=== PATIENT | male | born 1960 | race African-American/Black ===

== ENCOUNTER 2017-01-09 03:24 | Inpatient (IN) | payer MEDICAID ==
[~2017-01-09] VITALS: Ht 177.8 cm; Wt 71.7 kg
[~2017-01-09 03:24] MED LIST: ASPIRIN; ATORVASTATIN; FLUCONAZOLE; GABAPENTIN; HUMULIN; LISINOPRIL; METFORMIN; RISPERDONE; TRIUMEQ
[2017-01-09] MEDS ORDERED: ONDANSETRON HCL 4MG/2ML VIAL IV STA (04:03)
[2017-01-09] MEDS ORDERED: SODIUM CHLORIDE 0.9% 1000ML BAG (SEPSIS BOLUS) IV ONE (04:15)
[2017-01-09 04:53] LABS: BASOPHILS % 0.5 % (0.0-2.0); EOSINOPHILS % 2.8 % (0.0-5.0); HEMATOCRIT. 43.6 % (42.0-52.0); HEMOGLOBIN. 15.5 g/dL (14.0-18.0); LYMPHOCYTES % 25.6 % (20.0-50.0); MEAN CORPUSCULAR HEMOGLOBIN 34.2 pg (28.0-32.0); MEAN CORPUSCULAR VOLUME 96.3 fL (80.0-94.0); MEAN PLATELET VOLUME 8.3 fl (7.4-10.4); MONOCYTES % 13.5 % (2.0-8.0); NEUTROPHILS % 57.6 % (40.0-76.0); PLATELET 192 x1000/uL (130-400); RED BLOOD CELL COUNT 4.53 mill/uL (4.7-6.1); RED CELL DISTRIBUTION WIDTH 12.7 % (11.6-14.6)
[2017-01-09 05:00] LABS: INR 0.9; PROTHROMBIN TIME 9.9 sec (9.4-11.6)
[2017-01-09 05:12] LABS: CARBON DIOXIDE 27 mEq/L (21-32); CHLORIDE 97 mEq/L (98-107); ETHANOL BLOOD < 10 mg/dL; TROPONIN I < 0.02 ng/mL (0.00-0.04)
[2017-01-09 07:47] LABS: GLUCOSE URINE 3+ (NEGATIVE); KETONES URINE TRACE (NEGATIVE); LEUKOCYTE ESTERASE URINE NEGATIVE (NEGATIVE); NITRITE URINE NEGATIVE (NEGATIVE); OCCULT BLOOD URINE 2+ (NEGATIVE); PROTEIN URINE 1+ (NEGATIVE); SPECIFIC GRAVITY URINE 1.027 (1.005-1.030); UROBILINOGEN URINE 0.2 E.U./dL (0.2-1.0)
[2017-01-09 07:49] LABS: CLARITY URINE SL HAZY (CLEAR); COLOR URINE YELLOW (YELLOW)
[2017-01-09 08:06] LABS: *AMPHETAMINES SCREEN URINE NEGATIVE (NEGATIVE); *BARBITURATES SCREEN URINE NEGATIVE (NEGATIVE); *BENZODIAZEPINES SCREEN URINE NEGATIVE (NEGATIVE); *COCAINE SCREEN URINE PRESUMTIVE POSITIVE (NEGATIVE); CANNABINOID URINE SCREEN NEGATIVE (NEGATIVE); METHADONE URINE SCREEN NEGATIVE (NEGATIVE); OPIATES URINE SCREEN NEGATIVE (NEGATIVE); PHENCYCLIDINE URINE SCREEN NEGATIVE (NEGATIVE)
[2017-01-09 12:30] VITALS: BP 105/60
[2017-01-09 13:00] VITALS: BP 105/60
[2017-01-09] MEDS ORDERED: GENVOYA (15:35)
[2017-01-09] MEDS ORDERED: PNEUMOCOCCAL 23-VAL P-SAC VAC 0.5 ML IM ONE (15:45)
[2017-01-09 16:00] VITALS: BP 101/61
[2017-01-09] MEDS ORDERED: DEXTROSE 50% WATER 50ML SYRINGE IV PRN ×2 (17:30→17:45)
[2017-01-09] MEDS ORDERED: BLOOD SUGAR DIAGNOSTIC STRIP TEST SCH (17:40)
[2017-01-09] MEDS ORDERED: MAGNESIUM/ALUMINUM HYDROXIDE/SIMETHICONE 30ML UDC PO PRN (17:45)
[2017-01-09] MEDS ORDERED: ONDANSETRON HCL 4MG/2ML VIAL IV PRN (17:45)
[2017-01-09] MEDS ORDERED: IPRATROPIUM/ALBUTEROL 0.5-3(2.5)MG/3ML NEB INH PRN (17:45)
[2017-01-09] MEDS ORDERED: DIPHENHYDRAMINE 50MG/ML VIAL IV PRN (17:45)
[2017-01-09] MEDS ORDERED: CLONIDINE 0.1MG TABLET PO PRN (17:45)
[2017-01-09] MEDS: INSULIN LISPRO 100 UNITS/ML SUBCUT SCH ×2 (17:56→21:41)
[2017-01-09] MEDS ORDERED: INSULIN LISPRO 100 UNITS/ML SUBCUT SCH (18:10)
[2017-01-09] MEDS: SODIUM CHLORIDE 0.9% 1,000 ML IV SCH (18:57)
[2017-01-09 20:00] VITALS: BP 110/61
[2017-01-09 20:30] LABS: TROPONIN I < 0.02 ng/mL (0.00-0.04)
[2017-01-09 20:41] LABS: CREATINE KINASE 2108 IU/L (39-308)
[2017-01-09] MEDS: BLOOD SUGAR DIAGNOSTIC STRIP TEST SCH (21:42)
[2017-01-09] MEDS: SODIUM CHLORIDE 0.9% INJ 3ML FLUSH IVF SCH (21:42)
[2017-01-10] VITALS: BP 105/62
[2017-01-10 04:00] VITALS: BP 95/65
[2017-01-10] MEDS: SODIUM CHLORIDE 0.9% 1,000 ML IV SCH ×2 (04:05→07:20)
[2017-01-10] MEDS ORDERED: VANCOMYCIN 1250MG in DEXTROSE 5% WATER 250ML IV SCH (05:00)
[2017-01-10] MEDS: SODIUM CHLORIDE 0.9% INJ 3ML FLUSH IVF SCH ×3 (05:42→21:21)
[2017-01-10 06:51] LABS: CARBON DIOXIDE 26 mEq/L (21-32); CHLORIDE 98 mEq/L (98-107)
[2017-01-10 07:04] LABS: CREATINE KINASE 1857 IU/L (39-308); TROPONIN I < 0.02 ng/mL (0.00-0.04)
[2017-01-10] MEDS: BLOOD SUGAR DIAGNOSTIC STRIP TEST SCH ×3 (07:40→21:11)
[2017-01-10 08:00] VITALS: BP 107/68
[2017-01-10] MEDS: INSULIN LISPRO 100 UNITS/ML SUBCUT SCH ×3 (09:05→18:56)
[2017-01-10 12:00] VITALS: BP 110/77
[2017-01-10] MEDS ORDERED: DEXTROSE 50% WATER 50ML SYRINGE IV PRN ×2 (14:30→18:45)
[2017-01-10] MEDS: VANCOMYCIN 1250MG in DEXTROSE 5% WATER 250ML IV SCH ×2 (14:54→21:21)
[2017-01-10] MEDS ORDERED: INS NPH/REG HM 70-30 100 UNITS/ML 10ML VIAL (HUMULIN 70-30) SUBCUT SCH (15:00)
[2017-01-10] MEDS: DULOXETINE HCL 60MG DR CAPSULE PO SCH (15:07)
[2017-01-10] MEDS: GABAPENTIN 300MG CAPSULE PO SCH ×2 (15:07→21:07)
[2017-01-10 16:00] VITALS: BP 101/66
[2017-01-10] MEDS ORDERED: BLOOD SUGAR DIAGNOSTIC STRIP TEST SCH (17:40)
[2017-01-10] MEDS: METFORMIN HCL 500MG TABLET PO SCH (18:51)
[2017-01-10 20:00] VITALS: BP 114/82
[2017-01-10] MEDS ORDERED: INSULIN NPH (HUMULIN-N) 100 UNITS/ML 3ML VIAL SUBCUT SCH (21:00)
[2017-01-10] MEDS: INSULIN NPH (HUMULIN-N) 100 UNITS/ML 3ML VIAL SUBCUT SCH (21:21)
[2017-01-11] VITALS: BP 102/69
[2017-01-11 04:00] VITALS: BP 94/51
[2017-01-11] MEDS: SODIUM CHLORIDE 0.9% INJ 3ML FLUSH IVF SCH ×3 (06:18→22:27)
[2017-01-11] MEDS: VANCOMYCIN 1250MG in DEXTROSE 5% WATER 250ML IV SCH ×3 (06:18→22:27)
[2017-01-11] MEDS: GABAPENTIN 300MG CAPSULE PO SCH ×3 (06:18→22:27)
[2017-01-11] MEDS: BLOOD SUGAR DIAGNOSTIC STRIP TEST SCH ×4 (07:42→22:30)
[2017-01-11] MEDS: INSULIN LISPRO 100 UNITS/ML SUBCUT SCH ×4 (07:43→22:28)
[2017-01-11 08:00] VITALS: BP 107/71
[2017-01-11] MEDS: METFORMIN HCL 500MG TABLET PO SCH ×2 (08:08→18:13)
[2017-01-11] MEDS: DULOXETINE HCL 60MG DR CAPSULE PO SCH (08:08)
[2017-01-11] MEDS: INSULIN NPH (HUMULIN-N) 100 UNITS/ML 3ML VIAL SUBCUT SCH ×2 (08:10→22:29)
[2017-01-11] MEDS: ASPIRIN 81MG EC TABLET PO SCH (08:12)
[2017-01-11 12:00] VITALS: BP 97/63
[2017-01-11 20:00] VITALS: BP 108/67
[2017-01-12] VITALS: BP 107/66
[2017-01-12 04:00] VITALS: BP 109/66
[2017-01-12] MEDS: GABAPENTIN 300MG CAPSULE PO SCH (06:09)
[2017-01-12] MEDS: SODIUM CHLORIDE 0.9% INJ 3ML FLUSH IVF SCH (06:10)
[2017-01-12] MEDS: VANCOMYCIN 1250MG in DEXTROSE 5% WATER 250ML IV SCH (06:10)
[2017-01-12] MEDS: BLOOD SUGAR DIAGNOSTIC STRIP TEST SCH ×2 (07:42→12:03)
[2017-01-12 08:00] VITALS: BP 96/65
[2017-01-12] MEDS: ASPIRIN 81MG EC TABLET PO SCH (08:31)
[2017-01-12] MEDS: DULOXETINE HCL 60MG DR CAPSULE PO SCH (08:31)
[2017-01-12] MEDS: METFORMIN HCL 500MG TABLET PO SCH (08:31)
[2017-01-12] MEDS: INSULIN LISPRO 100 UNITS/ML SUBCUT SCH ×2 (08:34→12:21)
[2017-01-12] MEDS: INSULIN NPH (HUMULIN-N) 100 UNITS/ML 3ML VIAL SUBCUT SCH (08:34)
[2017-01-12 11:30] VITALS: BP 111/78
[2017-01-12 11:52] VITALS: BP 111/78
== END 2017-01-12 13:05 | disposition home or self-care (01) | DRG 469 ==
LOC: ER 03:24 → 7WST 05:43 → EDBEDREQ 05:53 → EDBEDREQSVC 07:49 → ENRESERV 12:03
PROVIDERS: ADMIT Internal Medicine; ATTEND Internal Medicine
DX: N17.9 Acute kidney failure, unspecified (principal); G92 Toxic encephalopathy; M62.82 Rhabdomyolysis; I95.9 Hypotension, unspecified; G90.8 Other disorders of autonomic nervous system; E11.9 Type 2 diabetes mellitus without complications; F14.10 Cocaine abuse, uncomplicated; H40.9 Unspecified glaucoma; I10 Essential (primary) hypertension; B95.8 Unspecified staphylococcus as the cause of diseases classified elsewhere; Z83.3 Family history of diabetes mellitus; Z79.84 Long term (current) use of oral hypoglycemic drugs; Z79.899 Other long term (current) drug therapy
CPT/HCPCS: 36415; 71010; 80048; 80053; 80202; 80305; 81001; 82550; 82962; 83605; 84484; 85025; 85610; 87040; 87077; 87086; 87186; 90732; 93005; 93970; 96361; 96374; 99291; G0482; J1815; J2405; J3370; J7030; J7050; J7060

== ENCOUNTER 2018-02-27 21:09 | Inpatient (IN) | payer MEDICAID ==
[~2018-02-27] VITALS: Ht 177.8 cm; Wt 75.7 kg
[~2018-02-27 21:09] MED LIST changes: -ASPIRIN; +ASPIRIN PO; -ATORVASTATIN; +ATORVASTATIN PO; -GABAPENTIN; +GABAPENTIN PO; +GENVOYA; -LISINOPRIL; +LISINOPRIL PO; -METFORMIN; +METFORMIN PO; -RISPERDONE; +RISPERDONE PO
[2018-02-27] MEDS ORDERED: SODIUM CHLORIDE 0.9% 1,000 ML IV ONE (21:24)
[2018-02-27 22:59] LABS: CLARITY URINE CLEAR (CLEAR); COLOR URINE DARK YELLOW (YELLOW); KETONES URINE 1+ (NEGATIVE); LEUKOCYTE ESTERASE URINE NEGATIVE (NEGATIVE); NITRITE URINE NEGATIVE (NEGATIVE); OCCULT BLOOD URINE NEGATIVE (NEGATIVE); PROTEIN URINE 2+ (NEGATIVE); SPECIFIC GRAVITY URINE 1.028 (1.005-1.030)
[2018-02-27 23:04] LABS: *AMPHETAMINES SCREEN URINE PRESUMTIVE POSITIVE (NEGATIVE); *BARBITURATES SCREEN URINE NEGATIVE (NEGATIVE); *BENZODIAZEPINES SCREEN URINE NEGATIVE (NEGATIVE); *COCAINE SCREEN URINE PRESUMTIVE POSITIVE (NEGATIVE); METHADONE URINE SCREEN NEGATIVE (NEGATIVE); OPIATES URINE SCREEN NEGATIVE (NEGATIVE)
[2018-02-27 23:05] LABS: CANNABINOID URINE SCREEN NEGATIVE (NEGATIVE); PHENCYCLIDINE URINE SCREEN NEGATIVE (NEGATIVE)
[2018-02-27 23:57] LABS: BASOPHILS % 0.3 % (0.0-2.0); EOSINOPHILS % 3.8 % (0.0-5.0); HEMATOCRIT. 38.6 % (42.0-52.0); HEMOGLOBIN. 13.2 g/dL (14.0-18.0); LYMPHOCYTES % 18.8 % (20.0-50.0); MEAN CORPUSCULAR HEMOGLOBIN 35.2 pg (28.0-32.0); MEAN PLATELET VOLUME 7.9 fl (7.4-10.4); MONOCYTES % 5.9 % (2.0-8.0); NEUTROPHILS % 71.2 % (40.0-76.0); PLATELET 290 x1000/uL (130-400); RED BLOOD CELL COUNT 3.75 mill/uL (4.7-6.1); RED CELL DISTRIBUTION WIDTH 12.9 % (11.6-14.6)
[2018-02-28] VITALS (12 sets, daily range): BP systolic 82–128; BP diastolic 43–88
[2018-02-28 00:02] LABS: CHLORIDE 104 mEq/L (98-107)
[2018-02-28 00:09] LABS: ETHANOL BLOOD < 10 mg/dL
[2018-02-28 00:10] LABS: PROTHROMBIN TIME 10.4 sec (9.1-11.1)
[2018-02-28] MEDS ORDERED: SODIUM CHLORIDE 0.9% 1,000 ML IV NR (00:45)
[2018-02-28 03:03] LABS: CREATINE KINASE 1307 IU/L (39-308)
[2018-02-28] MEDS ORDERED: TOLN1POW MC (05:50)
[2018-02-28] MEDS ORDERED: RANI300T4 MT (05:50)
[2018-02-28] MEDS ORDERED: TIMO15DR12 EACHEYE (05:50)
[2018-02-28] MEDS ORDERED: DULO60CA44 PO (05:50)
[2018-02-28] MEDS ORDERED: ACETAMINOPHEN 325MG TABLET PO PRN (07:00)
[2018-02-28] MEDS ORDERED: NA PHOS,M-B/NA PHOS,DI-BA ENEMA 118ML PR PRN (07:00)
[2018-02-28] MEDS ORDERED: CLONIDINE 0.1MG TABLET PO PRN (07:00)
[2018-02-28] MEDS ORDERED: IPRATROPIUM/ALBUTEROL 0.5-3(2.5)MG/3ML NEB INH PRN (07:00)
[2018-02-28] MEDS ORDERED: HYDROCODONE/ACETAMINOPHEN 10/325MG TABLET PO PRN (07:00)
[2018-02-28] MEDS ORDERED: GUAIFENESIN 200MG/10ML SUGAR FREE UDC PO PRN (07:00)
[2018-02-28] MEDS ORDERED: DOCUSATE SODIUM 100MG CAPSULE PO PRN (07:00)
[2018-02-28] MEDS ORDERED: LORAZEPAM 2MG/ML CPJ IV PRN (07:00)
[2018-02-28] MEDS ORDERED: MAGNESIUM/ALUMINUM HYDROXIDE/SIMETHICONE 30ML UDC PO PRN (07:00)
[2018-02-28] MEDS ORDERED: ONDANSETRON HCL 4MG/2ML INJ IV PRN (07:00)
[2018-02-28] MEDS ORDERED: DIPHENHYDRAMINE 50MG/ML VIAL IV PRN (07:00)
[2018-02-28] MEDS ORDERED: ENOXAPARIN 40MG/0.4ML SYR SUBCUT SCH (07:00)
[2018-02-28] MEDS: SODIUM CHLORIDE 0.45% 1,000 ML IV SCH (07:30)
[2018-02-28] MEDS ORDERED: DEXTROSE 50% WATER 50ML SYRINGE IV PRN (07:30)
[2018-02-28] MEDS: BLOOD SUGAR DIAGNOSTIC STRIP TEST SCH ×3 (07:30→20:57)
[2018-02-28] MEDS ORDERED: MORPHINE SULFATE 4 MG/ML CPJ (NOT FOR IM USE) IV PRN (07:30)
[2018-02-28] MEDS: ASPIRIN 81MG EC TABLET PO SCH (09:59)
[2018-02-28] MEDS: ENOXAPARIN 40MG/0.4ML SYR SUBCUT SCH (10:00)
[2018-02-28] MEDS: INSULIN LISPRO 100 UNITS/ML SUBCUT SCH ×3 (10:05→20:57)
[2018-02-28 10:46] LABS: CHLORIDE 100 mEq/L (98-107)
[2018-02-28] MEDS ORDERED: INS NPH/REG HM 70-30 100 UNITS/ML 10ML VIAL (HUMULIN 70-30) SUBCUT SCH ×2 (12:30→17:00)
[2018-03-01] VITALS: BP 108/67
[2018-03-01] MEDS: SODIUM CHLORIDE 0.45% 1,000 ML IV SCH (02:44)
[2018-03-01 04:00] VITALS: BP 98/57
[2018-03-01 06:22] LABS: HEMATOCRIT. 38.1 % (42.0-52.0); MEAN CORPUSCULAR HEMOGLOBIN 35.2 pg (28.0-32.0); MEAN CORPUSCULAR VOLUME 103.1 fL (80.0-94.0); MEAN PLATELET VOLUME 7.9 fl (7.4-10.4); PLATELET 265 x1000/uL (130-400); RED CELL DISTRIBUTION WIDTH 12.8 % (11.6-14.6)
[2018-03-01 06:36] LABS: CHLORIDE 100 mEq/L (98-107)
[2018-03-01 06:56] LABS: HDL CHOLESTEROL 38 mg/dL (40-59); LDL CHOLESTEROL 54 mg/dL (5-100)
[2018-03-01 08:00] VITALS: BP 114/90
[2018-03-01 08:05] LABS: PLATELET ESTIMATE NORMAL
[2018-03-01] MEDS ORDERED: INS NPH/REG HM 70-30 100 UNITS/ML 10ML VIAL (HUMULIN 70-30) SUBCUT SCH (09:00)
[2018-03-01] MEDS: BLOOD SUGAR DIAGNOSTIC STRIP TEST SCH ×2 (09:09→12:25)
[2018-03-01] MEDS: ASPIRIN 81MG EC TABLET PO SCH (09:41)
[2018-03-01] MEDS: ENOXAPARIN 40MG/0.4ML SYR SUBCUT SCH (09:41)
[2018-03-01] MEDS: INSULIN LISPRO 100 UNITS/ML SUBCUT SCH ×2 (09:50→13:06)
[2018-03-01 12:00] VITALS: BP 135/70
[2018-03-01 13:46] VITALS: BP 135/70
== END 2018-03-01 14:20 | disposition home or self-care (01) | DRG 469 ==
LOC: ER 21:09 → EDBEDREQTM 02-28 00:49 → 5EST 02-28 01:00 → EDBEDREQTM 02-28 01:07 → EDBEDREQ 02-28 01:07 → EDBEDREQSVC 02-28 01:07 → ENRESERV 02-28 01:55
PROVIDERS: ADMIT Internal Medicine; ATTEND Internal Medicine
DX: N17.0 Acute kidney failure with tubular necrosis (principal); G92 Toxic encephalopathy; I95.9 Hypotension, unspecified; E83.51 Hypocalcemia; E44.1 Mild protein-calorie malnutrition; E86.0 Dehydration; F14.90 Cocaine use, unspecified, uncomplicated; E11.9 Type 2 diabetes mellitus without complications; I10 Essential (primary) hypertension; Z79.82 Long term (current) use of aspirin; Z79.899 Other long term (current) drug therapy
CPT/HCPCS: 36415; 71045; 71250; 80048; 80061; 80305; 82550; 82962; 83605; 84439; 84443; 84484; 93005; 96360; 96361; 99291; G0482; J1650; J1815; J7030

== ENCOUNTER 2019-06-17 17:29 | Emergency (ER) | payer MEDICAID, OTHER ==
[~2019-06-17] VITALS: Ht 177.8 cm; Wt 71.0 kg
[~2019-06-17 17:29] MED LIST changes: +ERTU5TAB PO; -FLUCONAZOLE; -HUMULIN; +HYDR-4001 PO; +INSU100I24 SQ; -METFORMIN PO; -RISPERDONE PO; +TIMO15DR12 EACHEYE; -TRIUMEQ; +VITA1TAB15 PO; +XALAO EACHEYE
[2019-06-17] MEDS ORDERED: MORPHINE SULFATE 4 MG/ML CPJ (NOT FOR IM USE) IV STA (21:38)
[2019-06-17] MEDS ORDERED: ONDANSETRON HCL 4MG/2ML INJ IV STA (21:38)
[2019-06-17] MEDS ORDERED: SODIUM CHLORIDE 0.9% 1,000 ML IV ONE (21:38)
[2019-06-17] MEDS ORDERED: VANCOMYCIN 1 G PREMIX 200 ML IV ONE (21:45)
[2019-06-17] MEDS ORDERED: PIPERACILLIN/TAZ 3.375G PREMIX 50 ML IV ONE (21:45)
[2019-06-17 23:05] LABS: BASOPHILS % 1.3 % (0.0-2.0); EOSINOPHILS % 0.6 % (0.0-5.0); HEMATOCRIT. 24.3 % (42.0-52.0); HEMOGLOBIN. 8.3 g/dL (14.0-18.0); LYMPHOCYTES % 26.1 % (20.0-50.0); MEAN CORPUSCULAR HEMOGLOBIN 34.6 pg (28.0-32.0); MEAN CORPUSCULAR VOLUME 100.7 fL (80.0-94.0); MEAN PLATELET VOLUME 6.9 fl (7.4-10.4); MONOCYTES % 11.8 % (2.0-8.0); NEUTROPHILS % 60.2 % (40.0-76.0); PLATELET 575 x1000/uL (130-400); RED BLOOD CELL COUNT 2.41 mill/uL (4.7-6.1); RED CELL DISTRIBUTION WIDTH 12.9 % (11.6-14.6)
[2019-06-17 23:11] LABS: CHLORIDE 102 mEq/L (98-107)
[2019-06-17 23:15] LABS: ETHANOL BLOOD < 10 mg/dL
[2019-06-17 23:19] LABS: PROTHROMBIN TIME 11.1 sec (9.6-11.0)
[2019-06-18 00:59] LABS: CLARITY URINE CLEAR (CLEAR); COLOR URINE YELLOW (YELLOW); KETONES URINE NEGATIVE (NEGATIVE); LEUKOCYTE ESTERASE URINE NEGATIVE (NEGATIVE); NITRITE URINE NEGATIVE (NEGATIVE); OCCULT BLOOD URINE NEGATIVE (NEGATIVE); PROTEIN URINE NEGATIVE (NEGATIVE); SPECIFIC GRAVITY URINE 1.022 (1.005-1.030); UROBILINOGEN URINE 0.2 E.U./dL (0.2-1.0)
[2019-06-18 01:27] LABS: *BARBITURATES SCREEN URINE NEGATIVE (NEGATIVE)
[2019-06-18 01:29] LABS: *AMPHETAMINES SCREEN URINE NEGATIVE (NEGATIVE); *BENZODIAZEPINES SCREEN URINE NEGATIVE (NEGATIVE); *COCAINE SCREEN URINE NEGATIVE (NEGATIVE); CANNABINOID URINE SCREEN NEGATIVE (NEGATIVE); METHADONE URINE SCREEN NEGATIVE (NEGATIVE); PHENCYCLIDINE URINE SCREEN NEGATIVE (NEGATIVE)
[2019-06-18 02:54] VITALS: BP 159/95
[2019-06-21 09:07] LABS: OPIATES URINE SCREEN NEGATIVE (NEGATIVE)
== END 2019-06-18 03:25 | disposition short-term general hospital (02) ==
LOC: ER 17:29 → CANBEDREQ 06-18 06:27
DX: L03.114 Cellulitis of left upper limb (principal); M79.642 Pain in left hand; E11.9 Type 2 diabetes mellitus without complications; E78.00 Pure hypercholesterolemia, unspecified; B20 Human immunodeficiency virus [HIV] disease; I10 Essential (primary) hypertension; Z79.4 Long term (current) use of insulin; Z79.82 Long term (current) use of aspirin
CPT/HCPCS: 36415; 73090; 73130; 80048; 80305; 80320; 81003; 82962; 83605; 83690; 84145; 85025; 85610; 87040; 87086; 93005; 93971; 96365; 96366; 96368; 96375; 99285; J2270; J2405; J2543; J3370; J7030; G0480

== ENCOUNTER 2021-07-01 16:46 | Inpatient (IN) | payer OTHER ==
[~2021-07-01] VITALS: Ht 182.9 cm; Wt 55.3 kg
[2021-07-01] MEDS ORDERED: SODIUM CHLORIDE 0.9% 1,000 ML IV ONE ×3 (17:15→21:45)
[2021-07-01 18:11] LABS: CHLORIDE 82 mEq/L (98-107)
[2021-07-01 18:18] LABS: ETHANOL BLOOD < 10 mg/dL
[2021-07-01 18:20] LABS: BASOPHILS % 0.5 % (0.0-2.0); HEMATOCRIT. 44.5 % (42.0-52.0); HEMOGLOBIN. 13.9 g/dL (14.0-18.0); LYMPHOCYTES % 8.6 % (20.0-50.0); MEAN CORPUSCULAR VOLUME 108.5 fL (80.0-94.0); MEAN PLATELET VOLUME 8.7 fl (7.4-10.4); MONOCYTES % 4.7 % (2.0-8.0); NEUTROPHILS % 86.2 % (40.0-76.0); PLATELET 415 x1000/uL (130-400); RED CELL DISTRIBUTION WIDTH 14.4 % (11.6-14.6)
[2021-07-01 18:20] LABS: BG BASE EXCESS -30.6 mmol/L (-2.0-2.0); BG CARBOXYHEMOGLOBIN 0.3 % (0.5-1.5); BG DEOXYHEMOGLOBIN 14.8 % (0.0-5.0); BG FRACTION INSPIRED OXYGEN 21; BG HCO3 ACT 3.4 mmol/L (22.0-26.0); BG METHEMOGLOBIN 0.1 % (0.0-1.5); BG OXYGEN SATURATION 85.1 % (92.0-98.5); BG OXYHEMOGLOBIN 84.8 % (94.0-97.0); BG PCO2 22.8 mmHg (35.0-45.0); BG PH 6.796 (7.350-7.450); BG PO2 65.5 mmHg (75.0-100.0); BG SAMPLE SITE LEFT BRACHIAL; BG TOTAL HEMOGLOBIN 13.6 g/dL (12.0-18.0); BG VENT MODE ROOM AIR
[2021-07-01] MEDS ORDERED: PIPERACILLIN/TAZ 3.375G PREMIX 50 ML IV NR (18:26)
[2021-07-01 18:30] LABS: CLARITY URINE CLEAR (CLEAR); COLOR URINE YELLOW (YELLOW); KETONES URINE 2+ (NEGATIVE); LEUKOCYTE ESTERASE URINE NEGATIVE (NEGATIVE); NITRITE URINE NEGATIVE (NEGATIVE); OCCULT BLOOD URINE 1+ (NEGATIVE); PROTEIN URINE 1+ (NEGATIVE); SPECIFIC GRAVITY URINE 1.024 (1.005-1.030); UROBILINOGEN URINE 0.2 E.U./dL (0.2-1.0)
[2021-07-01] MEDS ORDERED: VANCOMYCIN 1G PREMIX 200 ML IV SCH (18:30)
[2021-07-01] MEDS ORDERED: PIPERACILLIN/TAZOBACTAM 3.375GM/50ML PREMIX IV ONE (18:30)
[2021-07-01 18:42] LABS: PHOSPHORUS 11.3 mg/dL (2.5-4.9)
[2021-07-01 18:46] LABS: BETA HYDROXYBUTYRATE 14.2 mMol/L (0.0-0.3)
[2021-07-01] MEDS ORDERED: INSULIN REGULAR 100U/100ML PMX 100 ML IV NR (19:00)
[2021-07-01] MEDS ORDERED: CALCIUM GLUCONATE 100MG/ML 10ML VIAL IV ONE (19:00)
[2021-07-01 19:18] LABS: *AMPHETAMINES SCREEN URINE NEGATIVE (NEGATIVE); *BARBITURATES SCREEN URINE NEGATIVE (NEGATIVE); *COCAINE SCREEN URINE NEGATIVE (NEGATIVE); METHADONE URINE SCREEN NEGATIVE (NEGATIVE); OPIATES URINE SCREEN NEGATIVE (NEGATIVE)
[2021-07-01 19:19] LABS: CANNABINOID URINE SCREEN NEGATIVE (NEGATIVE); PHENCYCLIDINE URINE SCREEN NEGATIVE (NEGATIVE)
[2021-07-01 19:27] LABS: *BENZODIAZEPINES SCREEN URINE NEGATIVE (NEGATIVE)
[2021-07-01] MEDS ORDERED: ALBUTEROL (0.083%) 2.5MG/3ML NEB HHN ONE (20:00)
[2021-07-01] MEDS ORDERED: SODIUM BICARBONATE 150 MEQ in SODIUM CHLORIDE 0.45% 1,000 ML IV SCH (20:00)
[2021-07-01] MEDS ORDERED: NOREPINEPHRINE 8MG/250ML PMX 250ML IV PRN (23:45)
[2021-07-02] VITALS (27 sets, daily range): BP systolic 67–107; BP diastolic 44–69
[2021-07-02] MEDS: SODIUM CHLORIDE 0.9% 1,000 ML IV SCH ×2 (01:00→20:15)
[2021-07-02] MEDS ORDERED: ONDANSETRON HCL 4MG/2ML INJ IV PRN (01:15)
[2021-07-02] MEDS ORDERED: DEXTROSE 50% WATER 50ML SYRINGE IV PRN ×2 (01:15)
[2021-07-02] MEDS ORDERED: INSULIN REGULAR 100U/100ML PMX 100 ML IV SCH (01:15)
[2021-07-02] MEDS: BLOOD SUGAR DIAGNOSTIC STRIP TEST SCH ×20 (01:25→20:16)
[2021-07-02] MEDS ORDERED: NOREPINEPHRINE 8 MG in DEXTROSE 5% WATER 250 ML IV PRN (02:00)
[2021-07-02] MEDS: INSULIN REGULAR 100U/100ML PMX 100 ML IV SCH ×3 (04:32→12:47)
[2021-07-02] MEDS ORDERED: NALOXONE HCL 0.4MG/ML VIAL IV PRN (10:15)
[2021-07-02 10:51] LABS: PHOSPHORUS 6.4 mg/dL (2.5-4.9)
[2021-07-02] MEDS ORDERED: VANCOMYCIN 750 MG in DEXT 5% WATER 250 ML IV SCH (12:00)
[2021-07-02] MEDS ORDERED: PNEUMOCOCCAL 23-VAL P-SAC VAC 0.5 ML IM ONE (19:45)
[2021-07-03] VITALS (35 sets, daily range): BP systolic 84–135; BP diastolic 51–92
[2021-07-03 01:15] LABS: CHLORIDE 113 mEq/L (98-107)
[2021-07-03] MEDS: BLOOD SUGAR DIAGNOSTIC STRIP TEST SCH ×4 (05:58→20:58)
[2021-07-03] MEDS ORDERED: VANCOMYCIN 750 MG in DEXT 5% WATER 250 ML IV SCH (06:00)
[2021-07-03] MEDS: INSULIN LISPRO 100 UNITS/ML SUBCUT SCH ×4 (06:20→20:58)
[2021-07-03] MEDS: SODIUM CHLORIDE 0.45% 1,000 ML IV SCH ×2 (08:00→20:57)
[2021-07-03] MEDS: HYDROCODONE/ACETAMINOPHEN 10/325MG TABLET PO PRN ×2 (08:39→16:19)
[2021-07-03 09:05] LABS: HEMATOCRIT. 40.1 % (42.0-52.0); MEAN CORPUSCULAR HEMOGLOBIN 33.5 pg (28.0-32.0); MEAN CORPUSCULAR VOLUME 96.4 fL (80.0-94.0); MEAN PLATELET VOLUME 8.2 fl (7.4-10.4); PLATELET 363 x1000/uL (130-400); RED BLOOD CELL COUNT 4.16 mill/uL (4.7-6.1); RED CELL DISTRIBUTION WIDTH 14.2 % (11.6-14.6)
[2021-07-03 09:15] LABS: CHLORIDE 113 mEq/L (98-107)
[2021-07-03] MEDS ORDERED: INSULIN GLARGINE 100 UNITS/ML SUBCUT SCH (10:00)
[2021-07-03 10:21] LABS: NUCLEATED RED BLOOD CELLS 1 /100 WBC; PLATELET ESTIMATE NORMAL
[2021-07-03] MEDS: LORAZEPAM 2MG/ML CPJ IV PRN (19:39)
[2021-07-03] MEDS: VANCOMYCIN 750 MG in DEXT 5% WATER 250 ML IV SCH (20:57)
[2021-07-03] MEDS: INSULIN GLARGINE 100 UNITS/ML SUBCUT SCH (22:00)
[2021-07-04 04:00] VITALS: BP 95/60
[2021-07-04] MEDS: BLOOD SUGAR DIAGNOSTIC STRIP TEST SCH ×4 (06:19→20:21)
[2021-07-04] MEDS: INSULIN LISPRO 100 UNITS/ML SUBCUT SCH ×4 (06:19→21:01)
[2021-07-04 06:37] LABS: HEMATOCRIT. 36.7 % (42.0-52.0); HEMOGLOBIN. 12.5 g/dL (14.0-18.0); MEAN CORPUSCULAR HEMOGLOBIN 33.3 pg (28.0-32.0); MEAN CORPUSCULAR VOLUME 97.6 fL (80.0-94.0); MEAN PLATELET VOLUME 8.1 fl (7.4-10.4); PLATELET 330 x1000/uL (130-400); RED BLOOD CELL COUNT 3.76 mill/uL (4.7-6.1); RED CELL DISTRIBUTION WIDTH 14.6 % (11.6-14.6)
[2021-07-04 06:54] LABS: CHLORIDE 117 mEq/L (98-107)
[2021-07-04 07:02] LABS: PHOSPHORUS 3.5 mg/dL (2.5-4.9)
[2021-07-04] MEDS: SODIUM CHLORIDE 0.45% 1,000 ML IV SCH (09:45)
[2021-07-04] MEDS: VANCOMYCIN 750 MG in DEXT 5% WATER 250 ML IV SCH ×2 (09:45→21:00)
[2021-07-04] MEDS: INSULIN GLARGINE 100 UNITS/ML SUBCUT SCH ×2 (09:48→21:01)
[2021-07-04 09:56] LABS: PLATELET ESTIMATE NORMAL
[2021-07-04] MEDS: DEXTROSE 5% WATER 1,000 ML IV SCH (10:49)
[2021-07-04 12:00] VITALS: BP 105/69
[2021-07-04] MEDS: LORAZEPAM 2MG/ML CPJ IV PRN (14:53)
[2021-07-04 16:00] VITALS: BP 113/75
[2021-07-04 20:00] VITALS: BP 119/84
[2021-07-05] VITALS: BP 104/78
[2021-07-05] MEDS: DEXTROSE 5% WATER 1,000 ML IV SCH ×2 (03:10→21:13)
[2021-07-05 04:00] VITALS: BP 101/66
[2021-07-05] MEDS: INSULIN LISPRO 100 UNITS/ML SUBCUT SCH ×4 (06:44→21:14)
[2021-07-05] MEDS: BLOOD SUGAR DIAGNOSTIC STRIP TEST SCH ×4 (06:44→21:13)
[2021-07-05 08:00] VITALS: BP 119/84
[2021-07-05 08:00] LABS: BASOPHILS % 0.5 % (0.0-2.0); EOSINOPHILS % 0.2 % (0.0-5.0); HEMATOCRIT. 40.9 % (42.0-52.0); HEMOGLOBIN. 13.9 g/dL (14.0-18.0); LYMPHOCYTES % 7.9 % (20.0-50.0); MEAN CORPUSCULAR HEMOGLOBIN 33.1 pg (28.0-32.0); MEAN CORPUSCULAR VOLUME 97.4 fL (80.0-94.0); MEAN PLATELET VOLUME 8.3 fl (7.4-10.4); MONOCYTES % 6.9 % (2.0-8.0); NEUTROPHILS % 84.5 % (40.0-76.0); PLATELET 342 x1000/uL (130-400); RED CELL DISTRIBUTION WIDTH 14.6 % (11.6-14.6)
[2021-07-05 08:12] LABS: CHLORIDE 118 mEq/L (98-107)
[2021-07-05 08:27] LABS: PHOSPHORUS 3.5 mg/dL (2.5-4.9)
[2021-07-05] MEDS: VANCOMYCIN 750 MG in DEXT 5% WATER 250 ML IV SCH ×2 (09:21→21:13)
[2021-07-05] MEDS: INSULIN GLARGINE 100 UNITS/ML SUBCUT SCH ×2 (10:57→21:14)
[2021-07-05 12:00] VITALS: BP 131/78
[2021-07-05 16:00] VITALS: BP 111/75
[2021-07-05 20:00] VITALS: BP 101/67
[2021-07-06] VITALS: BP 92/59
[2021-07-06 04:00] VITALS: BP 115/76
[2021-07-06] MEDS: DEXTROSE 50% WATER 50ML SYRINGE IV PRN (06:11)
[2021-07-06] MEDS: BLOOD SUGAR DIAGNOSTIC STRIP TEST SCH ×4 (06:51→21:00)
[2021-07-06] MEDS: INSULIN LISPRO 100 UNITS/ML SUBCUT SCH ×4 (06:51→21:00)
[2021-07-06 07:50] LABS: HEMATOCRIT. 42.2 % (42.0-52.0); HEMOGLOBIN. 14.1 g/dL (14.0-18.0); MEAN CORPUSCULAR VOLUME 98.3 fL (80.0-94.0); RED BLOOD CELL COUNT 4.29 mill/uL (4.7-6.1); RED CELL DISTRIBUTION WIDTH 14.8 % (11.6-14.6)
[2021-07-06 07:51] LABS: CHLORIDE 109 mEq/L (98-107)
[2021-07-06 07:56] LABS: PHOSPHORUS 3.2 mg/dL (2.5-4.9)
[2021-07-06 08:00] VITALS: BP 145/96
[2021-07-06 09:10] LABS: ABSOLUTE LYMPHOCYTES 0.5 x10E3/uL (0.7-3.1); ABSOLUTE MONOCYTES 0.8 x10E3/uL (0.1-0.9); ABSOLUTE NEUTROPHILS 8.5 x10E3/uL (1.4-7.0); BASOPHILS 0 % (Not Estab.); HEMATOCRIT 38.8 % (37.5-51.0); HEMATOLOGY COMMENT Note: (.); HEMOGLOBIN 13.7 g/dL (13.0-17.7); IMMATURE GRANULOCYTES 1 % (Not Estab.); IMMATURE GRANULOCYTES ABSOLUTE 0.1 x10E3/uL (0.0-0.1); LYMPHOCYTES 6 % (Not Estab.); MEAN CORPUSCULAR HEMOGLOBIN 33.2 pg (26.6-33.0); MEAN CORPUSCULAR HGB CONC. 35.3 g/dL (31.5-35.7); MEAN CORPUSCULAR VOLUME 94 fL (79-97); MONOCYTES 8 % (Not Estab.); NEUTROPHILS 85 % (Not Estab.); PLATELETS 349 x10E3/uL (150-450); RBC 4.13 x10E6/uL (4.14-5.80); RED CELL DISTRIBUTION WIDTH 12.9 % (11.6-15.4); WBC 9.9 x10E3/uL (3.4-10.8)
[2021-07-06] MEDS: VANCOMYCIN 750 MG in DEXT 5% WATER 250 ML IV SCH ×2 (09:37→21:51)
[2021-07-06] MEDS ORDERED: INSULIN GLARGINE 100 UNITS/ML SUBCUT SCH (10:00)
[2021-07-06] MEDS: HYDROCODONE/ACETAMINOPHEN 10/325MG TABLET PO PRN (10:24)
[2021-07-06 12:00] VITALS: BP 99/62
[2021-07-06] MEDS: DEXTROSE 5% WATER 1,000 ML IV SCH (12:25)
[2021-07-06 13:10] LABS: % CD 3 POS. LYMPHOCYTES 84.7 % (57.5-86.2); % CD 4 POS. LYMPHOCYTES 52.1 % (30.8-58.5); % CD 8 POS. LYMPH 32.5 % (12.0-35.5); ABSOLUTE CD 3 424 /uL (622-2402); ABSOLUTE CD 4 HELPER 261 /uL (359-1519); ABSOLUTE CD 8 SUPPRESSOR 163 /uL (109-897)
[2021-07-06 14:47] LABS: PLATELET ESTIMATE NORMAL
[2021-07-06] MEDS ORDERED: BUPR1FIL SL (15:42)
[2021-07-06 16:00] VITALS: BP 112/70
[2021-07-06] MEDS ORDERED: MORPHINE SULFATE 2 MG/ML CPJ (NOT FOR IM USE) IV NR (16:00)
[2021-07-06 20:00] VITALS: BP 115/76
[2021-07-06] MEDS: OXYCODONE HCL/ACETAMINOPHEN 5/325MG TABLET PO PRN (21:51)
[2021-07-07] VITALS: BP 94/55
[2021-07-07 04:00] VITALS: BP 123/71
[2021-07-07] MEDS: INSULIN LISPRO 100 UNITS/ML SUBCUT SCH ×4 (06:56→21:52)
[2021-07-07] MEDS: BLOOD SUGAR DIAGNOSTIC STRIP TEST SCH ×4 (06:56→21:13)
[2021-07-07 07:49] LABS: HEMATOCRIT. 33.8 % (42.0-52.0); HEMOGLOBIN. 11.7 g/dL (14.0-18.0); MEAN CORPUSCULAR HEMOGLOBIN 33.3 pg (28.0-32.0); MEAN CORPUSCULAR VOLUME 96.4 fL (80.0-94.0); MEAN PLATELET VOLUME 7.8 fl (7.4-10.4); PLATELET 245 x1000/uL (130-400); RED BLOOD CELL COUNT 3.51 mill/uL (4.7-6.1); RED CELL DISTRIBUTION WIDTH 13.8 % (11.6-14.6)
[2021-07-07 08:00] VITALS: BP 98/60
[2021-07-07 08:00] LABS: CHLORIDE 102 mEq/L (98-107)
[2021-07-07] MEDS: VANCOMYCIN 750 MG in DEXT 5% WATER 250 ML IV SCH ×2 (10:25→21:54)
[2021-07-07 12:00] VITALS: BP 103/62
[2021-07-07 16:00] VITALS: BP 142/73
[2021-07-07 20:00] VITALS: BP 117/72
[2021-07-07] MEDS: OXYCODONE HCL/ACETAMINOPHEN 5/325MG TABLET PO PRN (21:08)
[2021-07-07 21:24] LABS: PLATELET ESTIMATE NORMAL
[2021-07-07] MEDS ORDERED: INSULIN LISPRO 100 UNITS/ML SUBCUT NR (21:30)
[2021-07-07] MEDS: INSULIN GLARGINE 100 UNITS/ML SUBCUT SCH (23:29)
[2021-07-08] VITALS: BP 98/59
[2021-07-08] MEDS: OXYCODONE HCL/ACETAMINOPHEN 5/325MG TABLET PO PRN ×4 (01:17→20:23)
[2021-07-08 04:00] VITALS: BP 98/58
[2021-07-08] MEDS: INSULIN LISPRO 100 UNITS/ML SUBCUT SCH ×4 (05:54→20:29)
[2021-07-08] MEDS: BLOOD SUGAR DIAGNOSTIC STRIP TEST SCH ×4 (05:54→20:22)
[2021-07-08 07:40] LABS: CHLORIDE 104 mEq/L (98-107)
[2021-07-08 07:46] LABS: BASOPHILS % 0.1 % (0.0-2.0); EOSINOPHILS % 0.2 % (0.0-5.0); HEMATOCRIT. 32.5 % (42.0-52.0); HEMOGLOBIN. 11.2 g/dL (14.0-18.0); LYMPHOCYTES % 16.7 % (20.0-50.0); MEAN CORPUSCULAR HEMOGLOBIN 33.7 pg (28.0-32.0); MEAN CORPUSCULAR VOLUME 98.2 fL (80.0-94.0); MEAN PLATELET VOLUME 8.1 fl (7.4-10.4); MONOCYTES % 14.8 % (2.0-8.0); NEUTROPHILS % 68.2 % (40.0-76.0); PLATELET 259 x1000/uL (130-400); RED BLOOD CELL COUNT 3.31 mill/uL (4.7-6.1)
[2021-07-08 07:55] LABS: CREATINE KINASE 56 IU/L (39-308)
[2021-07-08 08:00] VITALS: BP 93/59
[2021-07-08] MEDS: VANCOMYCIN 750 MG in DEXT 5% WATER 250 ML IV SCH ×2 (08:48→20:22)
[2021-07-08] MEDS: INSULIN GLARGINE 100 UNITS/ML SUBCUT SCH ×2 (09:00→20:28)
[2021-07-08 12:00] VITALS: BP 101/67
[2021-07-08 16:00] VITALS: BP 101/56
[2021-07-08 20:31] VITALS: BP 105/70
[2021-07-09 00:32] VITALS: BP 127/78
[2021-07-09] MEDS: OXYCODONE HCL/ACETAMINOPHEN 5/325MG TABLET PO PRN ×4 (01:14→23:01)
[2021-07-09 04:00] VITALS: BP 132/88
[2021-07-09] MEDS: BLOOD SUGAR DIAGNOSTIC STRIP TEST SCH ×4 (06:29→21:00)
[2021-07-09] MEDS: INSULIN LISPRO 100 UNITS/ML SUBCUT SCH ×5 (06:29→22:45)
[2021-07-09 08:00] VITALS: BP 156/112
[2021-07-09] MEDS: VANCOMYCIN 750 MG in DEXT 5% WATER 250 ML IV SCH ×2 (09:55→22:07)
[2021-07-09] MEDS: INSULIN GLARGINE 100 UNITS/ML SUBCUT SCH ×2 (10:05→22:14)
[2021-07-09 12:00] VITALS: BP 144/83
[2021-07-09] MEDS ORDERED: IPRATROPIUM/ALBUTEROL 0.5-3(2.5)MG/3ML NEB HHN PRN (15:00)
[2021-07-09 15:05] LABS: PROTHROMBIN TIME 10.5 sec (9.6-11.0)
[2021-07-09 16:00] VITALS: BP 114/72
[2021-07-09] MEDS ORDERED: GADOTERATE MEGLUMINE 5 MMOL/10 ML VIAL IV ONE (16:12)
[2021-07-09] MEDS ORDERED: *PATIENT'S OWN MEDICATION STORAGE XX SCH (18:30)
[2021-07-09 20:00] VITALS: BP 103/69
[2021-07-09] MEDS: GENVOYA 150/150/200/10MG TABLET PO SCH (22:06)
[2021-07-10] VITALS (38 sets, daily range): BP systolic 96–168; BP diastolic 49–99
[2021-07-10] MEDS ORDERED: THROMBIN (BOVINE) 5000 UNITS/VIAL TOP ONE (05:34)
[2021-07-10] MEDS ORDERED: LIDOCAINE HCL/EPINEPHRINE 1%-EPI 1:100,000 20 ML VIAL ONE (05:34)
[2021-07-10] MEDS ORDERED: BACITRACIN 15GM TUBE TOP ONE (05:34)
[2021-07-10] MEDS ORDERED: GENTAMICIN SULF 40MG/ML 2ML VIAL ONE (05:34)
[2021-07-10] MEDS: DEXTROSE 50% WATER 50ML SYRINGE IV PRN (06:41)
[2021-07-10] MEDS: BLOOD SUGAR DIAGNOSTIC STRIP TEST SCH ×4 (06:59→21:40)
[2021-07-10 07:01] LABS: BASOPHILS % 0.1 % (0.0-2.0); EOSINOPHILS % 0.1 % (0.0-5.0); HEMATOCRIT. 33.8 % (42.0-52.0); HEMOGLOBIN. 11.6 g/dL (14.0-18.0); LYMPHOCYTES % 14.5 % (20.0-50.0); MEAN CORPUSCULAR VOLUME 95.9 fL (80.0-94.0); NEUTROPHILS % 77.3 % (40.0-76.0); PLATELET 387 x1000/uL (130-400); RED BLOOD CELL COUNT 3.52 mill/uL (4.7-6.1); RED CELL DISTRIBUTION WIDTH 13.5 % (11.6-14.6)
[2021-07-10 07:28] LABS: CHLORIDE 102 mEq/L (98-107)
[2021-07-10] MEDS ORDERED: PROPOFOL 200MG/20ML VIAL IV ONE (07:50)
[2021-07-10] MEDS ORDERED: ROCURONIUM BROMIDE 10MG/ML VIAL 5ML IV ONE (07:50)
[2021-07-10] MEDS ORDERED: DEXAMETHASONE 4MG/ML 1ML VIAL ONE (07:51)
[2021-07-10] MEDS ORDERED: CALCIUM CHLORIDE 1GM/10ML SYR IV ONE (08:18)
[2021-07-10] MEDS ORDERED: HYDROMORPHONE HCL/PF 2MG/ML (OR) ONE (08:25)
[2021-07-10] MEDS ORDERED: SODIUM CHLORIDE 0.45% 1,000 ML IV SCH (09:00)
[2021-07-10] MEDS ORDERED: NICARDIPINE 100 MG in SODIUM CHLORIDE 0.9% 60 ML IV PRN (09:30)
[2021-07-10] MEDS ORDERED: NEOSTIGMINE METHYLSULFATE 1MG/ML 10 ML VIAL ONE (09:31)
[2021-07-10] MEDS ORDERED: GLYCOPYRROLATE 0.2 MG/ML 2ML VIAL ONE (09:32)
[2021-07-10] MEDS ORDERED: HYDRALAZINE 20MG/ML VIAL ONE (09:33)
[2021-07-10] MEDS ORDERED: MEPERIDINE HCL/PF 25MG/ML CPJ IV PRN (09:45)
[2021-07-10] MEDS ORDERED: HYDROMORPHONE HCL/PF 2MG/ML CPJ IV PRN (09:45)
[2021-07-10] MEDS ORDERED: ONDANSETRON HCL 4MG/2ML INJ IV PRN (09:45)
[2021-07-10] MEDS ORDERED: LABETALOL 5MG/ML SYR 20 MG/4 ML SYRINGE IV PRN (09:45)
[2021-07-10] MEDS: DEXAMETHASONE 4MG/ML 1ML VIAL IV SCH ×3 (10:10→22:37)
[2021-07-10] MEDS: DEXT 5%/LACTATED RINGERS 1,000 ML IV SCH ×2 (10:11→17:58)
[2021-07-10] MEDS ORDERED: NALOXONE HCL 0.4MG/ML VIAL IV PRN (12:45)
[2021-07-10] MEDS ORDERED: BISACODYL 10MG SUPP PR SCH (13:15)
[2021-07-10] MEDS: INSULIN LISPRO 100 UNITS/ML SUBCUT SCH ×3 (13:16→21:00)
[2021-07-10] MEDS: MORPHINE SULFATE 4 MG/ML CPJ (NOT FOR IM USE) IV PRN ×3 (13:22→22:38)
[2021-07-10] MEDS: DAPTOMYCIN 500 MG in SODIUM CHLORIDE 0.9% 50 ML IV SCH (15:30)
[2021-07-10] MEDS: RIFAMPIN 300MG CAPSULE PO SCH (20:00)
[2021-07-10] MEDS: INSULIN GLARGINE 100 UNITS/ML SUBCUT SCH (21:00)
[2021-07-11] VITALS (37 sets, daily range): BP systolic 90–143; BP diastolic 52–91
[2021-07-11] MEDS: MORPHINE SULFATE 4 MG/ML CPJ (NOT FOR IM USE) IV PRN ×3 (01:15→15:10)
[2021-07-11 03:53] LABS: CREATINE KINASE 86 IU/L (39-308)
[2021-07-11] MEDS: DEXT 5%/LACTATED RINGERS 1,000 ML IV SCH ×2 (04:30→15:00)
[2021-07-11 05:20] LABS: HEMATOCRIT. 28.2 % (42.0-52.0); HEMOGLOBIN. 9.5 g/dL (14.0-18.0); MEAN CORPUSCULAR VOLUME 97.5 fL (80.0-94.0); MEAN PLATELET VOLUME 7.1 fl (7.4-10.4); PLATELET 377 x1000/uL (130-400); RED BLOOD CELL COUNT 2.89 mill/uL (4.7-6.1); RED CELL DISTRIBUTION WIDTH 13.8 % (11.6-14.6)
[2021-07-11 05:30] LABS: CHLORIDE 105 mEq/L (98-107)
[2021-07-11] MEDS: RIFAMPIN 300MG CAPSULE PO SCH ×2 (05:31→19:30)
[2021-07-11] MEDS: BLOOD SUGAR DIAGNOSTIC STRIP TEST SCH ×4 (05:31→21:00)
[2021-07-11] MEDS: DEXAMETHASONE 4MG/ML 1ML VIAL IV SCH (05:34)
[2021-07-11] MEDS: INSULIN LISPRO 100 UNITS/ML SUBCUT SCH ×5 (05:36→22:57)
[2021-07-11 07:31] LABS: PLATELET ESTIMATE NORMAL
[2021-07-11] MEDS: INSULIN GLARGINE 100 UNITS/ML SUBCUT SCH ×2 (09:54→22:57)
[2021-07-11] MEDS: GENVOYA 150/150/200/10MG TABLET PO SCH ×2 (10:53→10:55)
[2021-07-11] MEDS: DAPTOMYCIN 500 MG in SODIUM CHLORIDE 0.9% 50 ML IV SCH (12:23)
[2021-07-11 16:39] LABS: CREATINE KINASE 89 IU/L (39-308)
[2021-07-11 16:40] LABS: CREATINE KINASE MB FRACTION < 1.0 ng/mL (0.5-3.6)
[2021-07-11] MEDS ORDERED: DOCUSATE SODIUM 250MG CAPSULE PO PRN (20:15)
[2021-07-11 23:52] LABS: CREATINE KINASE 68 IU/L (39-308)
[2021-07-11 23:53] LABS: CREATINE KINASE MB FRACTION < 1.0 ng/mL (0.5-3.6)
[2021-07-12] VITALS (7 sets, daily range): BP systolic 100–157; BP diastolic 70–90
[2021-07-12] MEDS: INSULIN LISPRO 100 UNITS/ML SUBCUT SCH ×4 (06:51→21:00)
[2021-07-12] MEDS: BLOOD SUGAR DIAGNOSTIC STRIP TEST SCH ×4 (06:51→21:19)
[2021-07-12] MEDS: RIFAMPIN 300MG CAPSULE PO SCH ×2 (07:05→18:37)
[2021-07-12] MEDS: GENVOYA 150/150/200/10MG TABLET PO SCH (09:48)
[2021-07-12] MEDS: INSULIN GLARGINE 100 UNITS/ML SUBCUT SCH ×2 (09:49→22:00)
[2021-07-12] MEDS: DAPTOMYCIN 500 MG in SODIUM CHLORIDE 0.9% 50 ML IV SCH (13:14)
[2021-07-12] MEDS: MORPHINE SULFATE 4 MG/ML CPJ (NOT FOR IM USE) IV PRN ×2 (13:15→21:11)
[2021-07-13] VITALS: BP 119/69
[2021-07-13] MEDS: MORPHINE SULFATE 4 MG/ML CPJ (NOT FOR IM USE) IV PRN ×2 (03:21→10:52)
[2021-07-13 04:00] VITALS: BP 129/87
[2021-07-13] MEDS: RIFAMPIN 300MG CAPSULE PO SCH ×2 (05:59→17:30)
[2021-07-13] MEDS: BLOOD SUGAR DIAGNOSTIC STRIP TEST SCH ×4 (06:58→21:52)
[2021-07-13] MEDS: INSULIN LISPRO 100 UNITS/ML SUBCUT SCH ×4 (06:59→21:51)
[2021-07-13 07:21] LABS: CHLORIDE 104 mEq/L (98-107)
[2021-07-13 08:00] VITALS: BP 119/75
[2021-07-13] MEDS: GENVOYA 150/150/200/10MG TABLET PO SCH (08:48)
[2021-07-13] MEDS ORDERED: POTASSIUM CHLORIDE 20MEQ TABLET SR PO NR (10:30)
[2021-07-13] MEDS: INSULIN GLARGINE 100 UNITS/ML SUBCUT SCH ×2 (11:40→21:52)
[2021-07-13 12:00] VITALS: BP 101/62
[2021-07-13] MEDS: DAPTOMYCIN 500 MG in SODIUM CHLORIDE 0.9% 50 ML IV SCH (14:26)
[2021-07-13 16:00] VITALS: BP 109/70
[2021-07-13] MEDS: HYDROCODONE/ACETAMINOPHEN 5/325MG TABLET PO PRN ×2 (17:41→21:45)
[2021-07-13 20:00] VITALS: BP 114/67
[2021-07-14] VITALS: BP 164/99
[2021-07-14] MEDS: HYDROCODONE/ACETAMINOPHEN 5/325MG TABLET PO PRN ×5 (01:50→21:38)
[2021-07-14 04:00] VITALS: BP 118/69
[2021-07-14] MEDS: RIFAMPIN 300MG CAPSULE PO SCH ×2 (06:21→17:10)
[2021-07-14] MEDS: BLOOD SUGAR DIAGNOSTIC STRIP TEST SCH ×4 (06:36→21:52)
[2021-07-14] MEDS: DEXTROSE 50% WATER 50ML SYRINGE IV PRN (06:38)
[2021-07-14 06:46] LABS: BASOPHILS % 0.5 % (0.0-2.0); EOSINOPHILS % 0.4 % (0.0-5.0); HEMATOCRIT. 28.9 % (42.0-52.0); HEMOGLOBIN. 9.9 g/dL (14.0-18.0); LYMPHOCYTES % 21.7 % (20.0-50.0); MEAN CORPUSCULAR VOLUME 96.6 fL (80.0-94.0); MEAN PLATELET VOLUME 6.3 fl (7.4-10.4); MONOCYTES % 4.1 % (2.0-8.0); NEUTROPHILS % 73.3 % (40.0-76.0); PLATELET 475 x1000/uL (130-400); RED BLOOD CELL COUNT 2.99 mill/uL (4.7-6.1); RED CELL DISTRIBUTION WIDTH 13.6 % (11.6-14.6)
[2021-07-14 07:03] LABS: CHLORIDE 106 mEq/L (98-107)
[2021-07-14 07:15] LABS: PHOSPHORUS 1.9 mg/dL (2.5-4.9)
[2021-07-14] MEDS: INSULIN LISPRO 100 UNITS/ML SUBCUT SCH ×4 (07:50→21:59)
[2021-07-14 08:00] VITALS: BP 126/81
[2021-07-14] MEDS ORDERED: POTASSIUM CHLORIDE 20MEQ TABLET SR PO NR (08:45)
[2021-07-14] MEDS: INSULIN GLARGINE 100 UNITS/ML SUBCUT SCH (09:47)
[2021-07-14] MEDS ORDERED: POTASSIUM PHOS,M-BASIC-D-BASIC 20 MMOL in DEXT 5% WATER 243.3333 ML IV NR (11:00)
[2021-07-14 12:00] VITALS: BP 141/90
[2021-07-14] MEDS: GENVOYA 150/150/200/10MG TABLET PO SCH (12:06)
[2021-07-14] MEDS: DAPTOMYCIN 500 MG in SODIUM CHLORIDE 0.9% 50 ML IV SCH (17:10)
[2021-07-14 20:00] VITALS: BP 117/75
[2021-07-15] VITALS: BP 128/74
[2021-07-15] MEDS: HYDROCODONE/ACETAMINOPHEN 5/325MG TABLET PO PRN ×5 (02:03→21:22)
[2021-07-15 04:00] VITALS: BP 129/87
[2021-07-15] MEDS: RIFAMPIN 300MG CAPSULE PO SCH ×2 (06:10→18:00)
[2021-07-15] MEDS: BLOOD SUGAR DIAGNOSTIC STRIP TEST SCH ×4 (06:15→21:00)
[2021-07-15 06:54] LABS: BASOPHILS % 0.4 % (0.0-2.0); EOSINOPHILS % 0.6 % (0.0-5.0); HEMATOCRIT. 26.6 % (42.0-52.0); HEMOGLOBIN. 9.1 g/dL (14.0-18.0); LYMPHOCYTES % 25.4 % (20.0-50.0); MEAN CORPUSCULAR HEMOGLOBIN 33.2 pg (28.0-32.0); MEAN CORPUSCULAR VOLUME 97.1 fL (80.0-94.0); MEAN PLATELET VOLUME 6.2 fl (7.4-10.4); MONOCYTES % 5.8 % (2.0-8.0); NEUTROPHILS % 67.8 % (40.0-76.0); PLATELET 474 x1000/uL (130-400); RED BLOOD CELL COUNT 2.74 mill/uL (4.7-6.1); RED CELL DISTRIBUTION WIDTH 13.3 % (11.6-14.6)
[2021-07-15 08:00] VITALS: BP 138/84
[2021-07-15] MEDS: GENVOYA 150/150/200/10MG TABLET PO SCH (08:45)
[2021-07-15] MEDS: INSULIN LISPRO 100 UNITS/ML SUBCUT SCH ×4 (08:54→22:36)
[2021-07-15 09:06] LABS: CHLORIDE 102 mEq/L (98-107)
[2021-07-15 09:15] LABS: PHOSPHORUS 1.5 mg/dL (2.5-4.9)
[2021-07-15 12:00] VITALS: BP 121/74
[2021-07-15] MEDS: DAPTOMYCIN 500 MG in SODIUM CHLORIDE 0.9% 50 ML IV SCH (12:39)
[2021-07-15] MEDS ORDERED: POTASSIUM PHOS,M-BASIC-D-BASIC 20 MMOL in DEXT 5% WATER 243.3333 ML IV SCH (15:00)
[2021-07-15 16:00] VITALS: BP 122/72
[2021-07-15 20:00] VITALS: BP 115/75
[2021-07-15] MEDS: INSULIN GLARGINE 100 UNITS/ML SUBCUT SCH (22:48)
[2021-07-16] VITALS: BP 106/75
[2021-07-16 04:00] VITALS: BP 139/86
[2021-07-16] MEDS: HYDROCODONE/ACETAMINOPHEN 5/325MG TABLET PO PRN ×4 (05:13→23:01)
[2021-07-16] MEDS: RIFAMPIN 300MG CAPSULE PO SCH ×2 (06:08→17:50)
[2021-07-16 08:00] VITALS: BP 131/88
[2021-07-16] MEDS: BLOOD SUGAR DIAGNOSTIC STRIP TEST SCH ×4 (08:05→22:00)
[2021-07-16] MEDS: GENVOYA 150/150/200/10MG TABLET PO SCH (08:11)
[2021-07-16] MEDS: INSULIN LISPRO 100 UNITS/ML SUBCUT SCH ×4 (08:17→23:08)
[2021-07-16] MEDS: INSULIN GLARGINE 100 UNITS/ML SUBCUT SCH ×2 (10:21→23:14)
[2021-07-16 12:00] VITALS: BP 132/85
[2021-07-16] MEDS: DAPTOMYCIN 500 MG in SODIUM CHLORIDE 0.9% 50 ML IV SCH (13:59)
[2021-07-16 16:00] VITALS: BP 138/83
[2021-07-16] MEDS ORDERED: INSULIN LISPRO 100 UNITS/ML SUBCUT NR (18:15)
[2021-07-16 20:00] VITALS: BP 118/76
[2021-07-17] VITALS: BP 152/86
[2021-07-17 04:00] VITALS: BP 127/79
[2021-07-17] MEDS: RIFAMPIN 300MG CAPSULE PO SCH ×2 (05:49→18:44)
[2021-07-17] MEDS: HYDROCODONE/ACETAMINOPHEN 5/325MG TABLET PO PRN ×3 (05:57→21:45)
[2021-07-17] MEDS: BLOOD SUGAR DIAGNOSTIC STRIP TEST SCH ×4 (07:44→21:00)
[2021-07-17 08:00] VITALS: BP 134/80
[2021-07-17] MEDS: GENVOYA 150/150/200/10MG TABLET PO SCH (09:13)
[2021-07-17] MEDS: INSULIN LISPRO 100 UNITS/ML SUBCUT SCH ×4 (09:38→21:00)
[2021-07-17] MEDS ORDERED: HYDRALAZINE 20MG/ML VIAL IV PRN (09:45)
[2021-07-17] MEDS ORDERED: HYDRALAZINE 10 MG in SODIUM CHLORIDE 0.9% 49.5 ML IV PRN (09:45)
[2021-07-17] MEDS: INSULIN GLARGINE 100 UNITS/ML SUBCUT SCH ×2 (09:54→21:55)
[2021-07-17 12:00] VITALS: BP 121/72
[2021-07-17] MEDS: DAPTOMYCIN 500 MG in SODIUM CHLORIDE 0.9% 50 ML IV SCH (14:51)
[2021-07-17 16:00] VITALS: BP 138/80
[2021-07-17 20:00] VITALS: BP 146/86
[2021-07-18] VITALS: BP 122/69
[2021-07-18] MEDS: HYDROCODONE/ACETAMINOPHEN 5/325MG TABLET PO PRN ×4 (02:57→23:45)
[2021-07-18 04:00] VITALS: BP 135/88
[2021-07-18] MEDS: RIFAMPIN 300MG CAPSULE PO SCH ×2 (05:58→17:08)
[2021-07-18] MEDS: BLOOD SUGAR DIAGNOSTIC STRIP TEST SCH ×4 (07:20→21:46)
[2021-07-18 07:39] LABS: BASOPHILS % 0.7 % (0.0-2.0); EOSINOPHILS % 1.5 % (0.0-5.0); HEMATOCRIT. 24.9 % (42.0-52.0); HEMOGLOBIN. 8.8 g/dL (14.0-18.0); LYMPHOCYTES % 33.9 % (20.0-50.0); MEAN CORPUSCULAR HEMOGLOBIN 33.5 pg (28.0-32.0); MEAN CORPUSCULAR VOLUME 95.2 fL (80.0-94.0); MEAN PLATELET VOLUME 5.8 fl (7.4-10.4); MONOCYTES % 8.1 % (2.0-8.0); NEUTROPHILS % 55.8 % (40.0-76.0); PLATELET 486 x1000/uL (130-400); RED BLOOD CELL COUNT 2.61 mill/uL (4.7-6.1); RED CELL DISTRIBUTION WIDTH 13.4 % (11.6-14.6)
[2021-07-18 07:47] LABS: CHLORIDE 100 mEq/L (98-107)
[2021-07-18] MEDS: INSULIN LISPRO 100 UNITS/ML SUBCUT SCH ×4 (07:50→21:38)
[2021-07-18 08:00] VITALS: BP 129/90
[2021-07-18] MEDS: GENVOYA 150/150/200/10MG TABLET PO SCH (09:58)
[2021-07-18] MEDS: INSULIN GLARGINE 100 UNITS/ML SUBCUT SCH ×2 (10:04→21:53)
[2021-07-18 12:00] VITALS: BP 123/79
[2021-07-18] MEDS: POLYVINYL ALCOHOL OPHTH DROPS 15ML RIGHTEYE SCH ×2 (13:00→17:22)
[2021-07-18] MEDS: DAPTOMYCIN 500 MG in SODIUM CHLORIDE 0.9% 50 ML IV SCH (13:50)
[2021-07-18 16:00] VITALS: BP 98/62
[2021-07-18 20:00] VITALS: BP 125/73
[2021-07-18] MEDS ORDERED: INSULIN LISPRO 100 UNITS/ML SUBCUT NR (23:26)
[2021-07-19] VITALS: BP 107/71
[2021-07-19 04:00] VITALS: BP 158/82
[2021-07-19] MEDS: RIFAMPIN 300MG CAPSULE PO SCH ×2 (06:00→18:54)
[2021-07-19] MEDS: POLYVINYL ALCOHOL OPHTH DROPS 15ML RIGHTEYE SCH ×4 (06:00→18:54)
[2021-07-19] MEDS: BLOOD SUGAR DIAGNOSTIC STRIP TEST SCH ×4 (06:45→21:01)
[2021-07-19 07:07] LABS: BASOPHILS % 0.7 % (0.0-2.0); HEMATOCRIT. 25.2 % (42.0-52.0); HEMOGLOBIN. 8.7 g/dL (14.0-18.0); LYMPHOCYTES % 31.1 % (20.0-50.0); MEAN CORPUSCULAR HEMOGLOBIN 32.9 pg (28.0-32.0); MEAN CORPUSCULAR VOLUME 95.4 fL (80.0-94.0); NEUTROPHILS % 58.2 % (40.0-76.0); PLATELET 535 x1000/uL (130-400); RED BLOOD CELL COUNT 2.64 mill/uL (4.7-6.1); RED CELL DISTRIBUTION WIDTH 13.6 % (11.6-14.6)
[2021-07-19 07:10] LABS: CHLORIDE 102 mEq/L (98-107)
[2021-07-19] MEDS: INSULIN LISPRO 100 UNITS/ML SUBCUT SCH ×4 (07:54→21:10)
[2021-07-19 08:00] VITALS: BP 139/82
[2021-07-19] MEDS: INSULIN GLARGINE 100 UNITS/ML SUBCUT SCH ×2 (09:56→21:15)
[2021-07-19] MEDS ORDERED: POTASSIUM CHLORIDE 20MEQ TABLET SR PO NR (10:00)
[2021-07-19] MEDS: HYDROCODONE/ACETAMINOPHEN 5/325MG TABLET PO PRN ×3 (10:07→20:56)
[2021-07-19] MEDS: GENVOYA 150/150/200/10MG TABLET PO SCH (10:09)
[2021-07-19 12:00] VITALS: BP 131/79
[2021-07-19 16:00] VITALS: BP 124/86
[2021-07-19] MEDS: DAPTOMYCIN 500 MG in SODIUM CHLORIDE 0.9% 50 ML IV SCH (17:09)
[2021-07-19 20:00] VITALS: BP 132/82
[2021-07-20 00:37] VITALS: BP 143/89
[2021-07-20] MEDS: POLYVINYL ALCOHOL OPHTH DROPS 15ML RIGHTEYE SCH ×2 (01:32→05:25)
[2021-07-20] MEDS: HYDROCODONE/ACETAMINOPHEN 5/325MG TABLET PO PRN ×2 (02:20→08:34)
[2021-07-20 04:00] VITALS: BP 129/87
[2021-07-20] MEDS: RIFAMPIN 300MG CAPSULE PO SCH (05:25)
[2021-07-20] MEDS: BLOOD SUGAR DIAGNOSTIC STRIP TEST SCH (07:20)
[2021-07-20 07:45] LABS: BASOPHILS % 0.7 % (0.0-2.0); EOSINOPHILS % 1.6 % (0.0-5.0); HEMATOCRIT. 28.5 % (42.0-52.0); HEMOGLOBIN. 9.7 g/dL (14.0-18.0); LYMPHOCYTES % 38.7 % (20.0-50.0); MEAN CORPUSCULAR HEMOGLOBIN 33.1 pg (28.0-32.0); MEAN CORPUSCULAR VOLUME 96.9 fL (80.0-94.0); MEAN PLATELET VOLUME 5.9 fl (7.4-10.4); MONOCYTES % 8.1 % (2.0-8.0); NEUTROPHILS % 50.9 % (40.0-76.0); PLATELET 544 x1000/uL (130-400); RED BLOOD CELL COUNT 2.94 mill/uL (4.7-6.1); RED CELL DISTRIBUTION WIDTH 13.6 % (11.6-14.6)
[2021-07-20] MEDS: INSULIN LISPRO 100 UNITS/ML SUBCUT SCH (07:50)
[2021-07-20 08:01] LABS: CHLORIDE 102 mEq/L (98-107)
[2021-07-20] MEDS: GENVOYA 150/150/200/10MG TABLET PO SCH (09:06)
[2021-07-20] MEDS: INSULIN GLARGINE 100 UNITS/ML SUBCUT SCH (09:12)
[2021-07-20 11:15] VITALS: BP 138/87
[2021-07-20] MEDS ORDERED: HYDR-4001 PO (11:24)
[2021-07-20] MEDS ORDERED: RIFA300C4 PO (11:24)
[2021-07-20] MEDS ORDERED: INSU100I28 SQ (11:24)
[2021-07-20] MEDS ORDERED: DOCU250C14 PO (11:24)
== END 2021-07-20 12:21 | disposition home health service (06) | DRG 710 ==
LOC: ER 16:46 → EDBEDREQTM 20:40 → MICUSO 21:44 → EDBEDREQ 21:48 → EDBEDREQTM 21:48 → ENRESERV 23:09 → 5WST 07-03 22:45 → MICUSO 07-10 12:34 → 6EST 07-11 12:42
PROVIDERS: ADMIT Internal Medicine; ATTEND Internal Medicine
PROC: 0KBW0ZZ Excision of Left Foot Muscle, Open Approach (ICD-10-PCS; principal; 2021-07-05)
PROC: 0RG10A0 Fusion of Cervical Vertebral Joint with Interbody Fusion Device, Anterior Approach, Anterior Column, Open Approach (ICD-10-PCS; 2021-07-08)
PROC: 009U3ZZ Drainage of Spinal Canal, Percutaneous Approach (ICD-10-PCS; 2021-07-08)
PROC: 0RB30ZZ Excision of Cervical Vertebral Disc, Open Approach (ICD-10-PCS; 2021-07-08)
PROC: 01N10ZZ Release Cervical Nerve, Open Approach (ICD-10-PCS; 2021-07-08)
PROC: 0KBW0ZZ Excision of Left Foot Muscle, Open Approach (ICD-10-PCS; 2021-07-13)
DX: A41.02 Sepsis due to Methicillin resistant Staphylococcus aureus (principal); B20 Human immunodeficiency virus [HIV] disease; N17.0 Acute kidney failure with tubular necrosis; I33.0 Acute and subacute infective endocarditis; G06.1 Intraspinal abscess and granuloma; G82.50 Quadriplegia, unspecified; E11.10 Type 2 diabetes mellitus with ketoacidosis without coma; E44.0 Moderate protein-calorie malnutrition; L89.156 Pressure-induced deep tissue damage of sacral region; J39.0 Retropharyngeal and parapharyngeal abscess; G93.41 Metabolic encephalopathy; E86.9 Volume depletion, unspecified; E87.5 Hyperkalemia; E87.1 Hypo-osmolality and hyponatremia; I10 Essential (primary) hypertension; E87.8 Other disorders of electrolyte and fluid balance, not elsewhere classified; E78.00 Pure hypercholesterolemia, unspecified; F17.210 Nicotine dependence, cigarettes, uncomplicated; E78.5 Hyperlipidemia, unspecified; F17.200 Nicotine dependence, unspecified, uncomplicated; M48.02 Spinal stenosis, cervical region; R65.20 Severe sepsis without septic shock; E87.6 Hypokalemia; Z20.822 Contact with and (suspected) exposure to COVID-19; M47.9 Spondylosis, unspecified; G89.29 Other chronic pain; I36.8 Other nonrheumatic tricuspid valve disorders; M46.42 Discitis, unspecified, cervical region; M46.22 Osteomyelitis of vertebra, cervical region; Z79.899 Other long term (current) drug therapy; Z79.4 Long term (current) use of insulin; Z79.891 Long term (current) use of opiate analgesic; Z68.1 Body mass index [BMI] 19.9 or less, adult; K85.90 Acute pancreatitis without necrosis or infection, unspecified; S91.102A Unspecified open wound of left great toe without damage to nail, initial encounter; S91.105A Unspecified open wound of left lesser toe(s) without damage to nail, initial encounter
CPT/HCPCS: 36415; 36600; 71045; 72040; 72141; 72142; 73030; 76000; 80048; 80053; 80076; 80202; 80305; 80307; 80320; 80329; 81003; 82010; 82040; 82375; 82550; 82553; 82805; 82962; 83036; 83605; 83735; 83880; 83930; 83935; 84100; 84132; 84134; 84145; 84484; 85025; 85651; 86359; 86360; 86850; 86900; 87070; 87075; 87077; 87106; 87186; 87426; 88304; 88311; 92610; 93005; 93306; 93923; 94640; 95925; 95926; 95928; 95929; 97116; 97162; 97166; 97530; 97535; 99291; A9577; C1713; C1893; J0360; J0610; J0878; J1100; J1170; J1580; J1815; J2060; J2270; J2543; J2704; J2710; J3370; J3490; J7030; J7040; J7050; J7060; J7070; J7121; L0172; C1762; G0480

== ENCOUNTER 2021-08-06 09:03 | Emergency (ER) | payer OTHER ==
[~2021-08-06] VITALS: Ht 177.8 cm; Wt 68.0 kg
[~2021-08-06 09:03] MED LIST changes: +BUPR1FIL SL; +DOCU250C14 PO; -INSU100I24 SQ; +INSU100I28 SQ; +RIFA300C4 PO
[2021-08-06 09:22] VITALS: BP 126/78
== END 2021-08-06 18:15 | disposition left against medical advice (07) ==
LOC: ER 09:03
DX: Z53.21 Procedure and treatment not carried out due to patient leaving prior to being seen by health care provider (principal)
CPT/HCPCS: 82962

== ENCOUNTER 2021-08-06 19:07 | Emergency (ER) | payer OTHER ==
[~2021-08-06] VITALS: Ht 177.8 cm; Wt 68.0 kg
[2021-08-07 01:30] VITALS: BP 141/88
== END 2021-08-07 01:51 | disposition home or self-care (01) ==
LOC: ER 19:07
DX: T82.898A Other specified complication of vascular prosthetic devices, implants and grafts, initial encounter (principal); Y83.8 Other surgical procedures as the cause of abnormal reaction of the patient, or of later complication, without mention of misadventure at the time of the procedure; Y92.9 Unspecified place or not applicable; I12.9 Hypertensive chronic kidney disease with stage 1 through stage 4 chronic kidney disease, or unspecified chronic kidney disease; E11.22 Type 2 diabetes mellitus with diabetic chronic kidney disease; N18.9 Chronic kidney disease, unspecified; E11.9 Type 2 diabetes mellitus without complications; E78.00 Pure hypercholesterolemia, unspecified; B20 Human immunodeficiency virus [HIV] disease; Z79.4 Long term (current) use of insulin; Z79.82 Long term (current) use of aspirin; Z98.890 Other specified postprocedural states
CPT/HCPCS: 99281

== ENCOUNTER 2021-08-07 09:26 | Emergency (ER) | payer OTHER ==
[~2021-08-07] VITALS: Ht 177.8 cm; Wt 68.0 kg
[2021-08-07] MEDS ORDERED: DAPTOMYCIN 500 MG in SODIUM CHLORIDE 0.9% 50 ML IV SCH (10:00)
[2021-08-07 10:43] LABS: HEMATOCRIT. 28.5 % (42.0-52.0); HEMOGLOBIN. 9.3 g/dL (14.0-18.0); MEAN CORPUSCULAR HEMOGLOBIN 32.7 pg (28.0-32.0); MEAN CORPUSCULAR VOLUME 99.9 fL (80.0-94.0); MEAN PLATELET VOLUME 6.9 fl (7.4-10.4); PLATELET 425 x1000/uL (130-400); RED BLOOD CELL COUNT 2.85 mill/uL (4.7-6.1); RED CELL DISTRIBUTION WIDTH 14.8 % (11.6-14.6)
[2021-08-07 10:47] LABS: CHLORIDE 105 mEq/L (98-107)
[2021-08-07 11:08] LABS: NUCLEATED RED BLOOD CELLS 2 /100 WBC
[2021-08-07 11:09] LABS: PLATELET ESTIMATE SLIGHTLY INCREASED
[2021-08-07 16:59] VITALS: BP 142/69
== END 2021-08-07 17:02 | disposition home or self-care (01) ==
LOC: ER 09:26
DX: T82.898A Other specified complication of vascular prosthetic devices, implants and grafts, initial encounter (principal); Y83.8 Other surgical procedures as the cause of abnormal reaction of the patient, or of later complication, without mention of misadventure at the time of the procedure; Y92.9 Unspecified place or not applicable; E11.9 Type 2 diabetes mellitus without complications; B20 Human immunodeficiency virus [HIV] disease; E78.00 Pure hypercholesterolemia, unspecified; Z79.4 Long term (current) use of insulin; Z79.82 Long term (current) use of aspirin; Z20.822 Contact with and (suspected) exposure to COVID-19
CPT/HCPCS: 36415; 71045; 76937; 80053; 82962; 85025; 85610; 87426; 96365; 99285; C1725; J0878

== ENCOUNTER 2021-08-22 13:34 | Emergency (ER) | payer OTHER ==
[~2021-08-22] VITALS: Ht 177.8 cm; Wt 68.0 kg
[2021-08-22] MEDS ORDERED: HYDROCODONE/ACETAMINOPHEN 5/325MG TABLET PO ONE (14:15)
[2021-08-22 14:33] VITALS: BP 95/53
[2021-08-22 14:45] LABS: HEMATOCRIT. 31.7 % (42.0-52.0); HEMOGLOBIN. 10.9 g/dL (14.0-18.0); MEAN CORPUSCULAR HEMOGLOBIN 34.2 pg (28.0-32.0); MEAN CORPUSCULAR VOLUME 100.1 fL (80.0-94.0); MEAN PLATELET VOLUME 6.7 fl (7.4-10.4); PLATELET 400 x1000/uL (130-400); RED BLOOD CELL COUNT 3.17 mill/uL (4.7-6.1); RED CELL DISTRIBUTION WIDTH 15.6 % (11.6-14.6)
[2021-08-22 14:52] LABS: CHLORIDE 104 mEq/L (98-107)
[2021-08-22 15:00] LABS: CREATINE KINASE 94 IU/L (39-308)
[2021-08-22] MEDS ORDERED: HYDR-4001 MT (15:13)
[2021-08-22 15:58] LABS: PLATELET ESTIMATE NORMAL
== END 2021-08-22 15:58 | disposition home or self-care (01) ==
LOC: ER 13:34
DX: M79.621 Pain in right upper arm (principal); G89.29 Other chronic pain; I38 Endocarditis, valve unspecified; R78.81 Bacteremia; E11.65 Type 2 diabetes mellitus with hyperglycemia; E78.00 Pure hypercholesterolemia, unspecified; I10 Essential (primary) hypertension; B20 Human immunodeficiency virus [HIV] disease; M46.42 Discitis, unspecified, cervical region; J39.0 Retropharyngeal and parapharyngeal abscess; M86.9 Osteomyelitis, unspecified; Z79.4 Long term (current) use of insulin; Z79.82 Long term (current) use of aspirin; Z79.899 Other long term (current) drug therapy; Z98.890 Other specified postprocedural states
CPT/HCPCS: 36415; 80053; 82550; 85025; 99283

== ENCOUNTER 2022-01-18 23:33 | Emergency (ER) | payer MEDICAID, OTHER ==
[~2022-01-18] VITALS: Ht 177.8 cm; Wt 70.0 kg
[~2022-01-18 23:33] MED LIST changes: +AMLO2.5T45 PO; -ASPIRIN PO; -ATORVASTATIN PO; -GENVOYA; +LIP40 PO; -LISINOPRIL PO; +METF-414 MT; +RIFA300C34 PO; -RIFA300C4 PO; +RISP1 PO; +TRAZ-251 PO
[2022-01-19] MEDS ORDERED: HYDROCODONE/ACETAMINOPHEN 5/325MG TABLET PO ONE
[2022-01-19] MEDS ORDERED: KETOROLAC 30MG/ML VIAL IM ONE
[2022-01-19 00:37] VITALS: BP 107/68
[2022-01-19] MEDS ORDERED: TRAM50TA3 MT (01:03)
[2022-01-22] MEDS ORDERED: BICT1TAB PO (17:11)
[2022-01-22] MEDS ORDERED: APIX5TAB MT (17:13)
== END 2022-01-19 02:19 | disposition home or self-care (01) ==
LOC: ER 23:52
DX: M25.561 Pain in right knee (principal); I10 Essential (primary) hypertension; E11.9 Type 2 diabetes mellitus without complications; Z98.890 Other specified postprocedural states; Z86.59 Personal history of other mental and behavioral disorders; Z79.899 Other long term (current) drug therapy
CPT/HCPCS: 96372; 99283; J1885

== ENCOUNTER 2022-03-14 04:38 | Inpatient (IN) | payer OTHER ==
[~2022-03-14] VITALS: Ht 177.8 cm; Wt 65.5 kg
[2022-03-14] VITALS (14 sets, daily range): BP systolic 104–158; BP diastolic 53–105
[~2022-03-14 04:38] MED LIST changes: -AMLO2.5T45 PO; +ASPI-1160 PO; +BICT1TAB PO; -ERTU5TAB PO; +FERR325T6 PO; +FURO40TA5 MT; -HYDR-4001 PO; +INSLIS SUBCUT; -INSU100I28 SQ; +LANTUSUD SUBCUT; +LEVO-65 MT; -METF-414 MT; +METF-414 PO; -RIFA300C34 PO; -RISP1 PO; -TRAZ-251 PO; -VITA1TAB15 PO
[2022-03-14] MEDS ORDERED: INSULIN REGULAR (HUMULIN R) 300UNITS/3ML VIAL SUBCUT ONE (05:30)
[2022-03-14] MEDS ORDERED: SODIUM CHLORIDE 0.9% 1,000 ML IV ONE ×2 (05:30→07:00)
[2022-03-14 06:04] LABS: BASOPHILS % 0.3 % (0.0-2.0); EOSINOPHILS % 1.1 % (0.0-5.0); HEMATOCRIT. 43.3 % (42.0-52.0); HEMOGLOBIN. 14.5 g/dL (14.0-18.0); LYMPHOCYTES % 27.1 % (20.0-50.0); MEAN CORPUSCULAR HEMOGLOBIN 33.8 pg (28.0-32.0); MEAN CORPUSCULAR VOLUME 100.8 fL (80.0-94.0); MEAN PLATELET VOLUME 7.9 fl (7.4-10.4); MONOCYTES % 7.2 % (2.0-8.0); NEUTROPHILS % 64.3 % (40.0-76.0); PLATELET 369 x1000/uL (130-400); RED CELL DISTRIBUTION WIDTH 13.9 % (11.6-14.6)
[2022-03-14 06:15] LABS: CHLORIDE 94 mEq/L (98-107)
[2022-03-14 06:24] LABS: CREATINE KINASE 165 IU/L (39-308)
[2022-03-14] MEDS ORDERED: INSULIN REGULAR (DRIP) 100 UNITS in SODIUM CHLORIDE 0.9% 99 ML IV ONE (07:30)
[2022-03-14] MEDS ORDERED: INSULIN REGULAR (DRIP) 100 UNITS in SODIUM CHLORIDE 0.9% 99 ML IV SCH (10:00)
[2022-03-14 11:57] LABS: CLARITY URINE CLEAR (CLEAR); COLOR URINE YELLOW (YELLOW); KETONES URINE 3+ (NEGATIVE); LEUKOCYTE ESTERASE URINE NEGATIVE (NEGATIVE); NITRITE URINE NEGATIVE (NEGATIVE); OCCULT BLOOD URINE NEGATIVE (NEGATIVE); PH URINE 5.5 (4.5-8.0); PROTEIN URINE TRACE (NEGATIVE); SPECIFIC GRAVITY URINE 1.037 (1.005-1.030); UROBILINOGEN URINE 0.2 E.U./dL (0.2-1.0)
[2022-03-14] MEDS ORDERED: DEXT IV SCH (13:00)
[2022-03-14] MEDS ORDERED: NACL IV SCH (13:00)
[2022-03-14] MEDS ORDERED: ONDANSETRON HCL 4MG/2ML INJ IV PRN (13:00)
[2022-03-14] MEDS: BLOOD SUGAR DIAGNOSTIC STRIP TEST SCH ×11 (13:00→23:32)
[2022-03-14] MEDS ORDERED: CLONIDINE 0.1MG TABLET PO PRN (13:00)
[2022-03-14] MEDS ORDERED: DIPHENHYDRAMINE 50MG/ML VIAL IV PRN (13:00)
[2022-03-14] MEDS ORDERED: POTASSIUM ACETATE IV SCH (13:00)
[2022-03-14] MEDS ORDERED: ACETAMINOPHEN 325MG TABLET PO PRN (13:00)
[2022-03-14] MEDS ORDERED: IPRATROPIUM/ALBUTEROL 0.5-3(2.5)MG/3ML NEB HHN PRN (13:00)
[2022-03-14] MEDS ORDERED: DEXTROSE 50% WATER 50ML SYRINGE IV PRN ×2 (13:15)
[2022-03-14] MEDS ORDERED: INSULIN REGULAR (DRIP) 100 UNITS in SODIUM CHLORIDE 0.9% 100 ML IV SCH (13:15)
[2022-03-14] MEDS: DEXT 5%/0.9% NACL KCL 20MEQ/L 1,000 ML IV SCH ×2 (15:17→21:32)
[2022-03-14] MEDS: DAPTOMYCIN 500 MG in SODIUM CHLORIDE 0.9% 50 ML IV SCH (19:09)
[2022-03-14 21:22] LABS: CHLORIDE 111 mEq/L (98-107)
[2022-03-15] VITALS (23 sets, daily range): BP systolic 81–144; BP diastolic 53–89
[2022-03-15] MEDS: BLOOD SUGAR DIAGNOSTIC STRIP TEST SCH ×13 (00:35→21:00)
[2022-03-15 01:08] LABS: CHLORIDE 110 mEq/L (98-107)
[2022-03-15] MEDS: DEXT 5%/0.9% NACL KCL 20MEQ/L 1,000 ML IV SCH ×2 (02:00→08:11)
[2022-03-15 05:48] LABS: BASOPHILS % 0.2 % (0.0-2.0); HEMATOCRIT. 36.5 % (42.0-52.0); HEMOGLOBIN. 12.6 g/dL (14.0-18.0); LYMPHOCYTES % 25.3 % (20.0-50.0); MEAN CORPUSCULAR VOLUME 98.5 fL (80.0-94.0); MEAN PLATELET VOLUME 7.9 fl (7.4-10.4); MONOCYTES % 6.8 % (2.0-8.0); NEUTROPHILS % 64.7 % (40.0-76.0); PLATELET 282 x1000/uL (130-400); RED BLOOD CELL COUNT 3.71 mill/uL (4.7-6.1); RED CELL DISTRIBUTION WIDTH 14.1 % (11.6-14.6)
[2022-03-15 05:58] LABS: CHLORIDE 112 mEq/L (98-107)
[2022-03-15] MEDS ORDERED: DEXTROSE 50% WATER 50ML SYRINGE IV PRN (09:45)
[2022-03-15 12:11] LABS: CHLORIDE 107 mEq/L (98-107)
[2022-03-15] MEDS: INSULIN LISPRO 100 UNITS/ML SUBCUT SCH ×3 (12:18→21:00)
[2022-03-15] MEDS: DAPTOMYCIN 500 MG in SODIUM CHLORIDE 0.9% 50 ML IV SCH (17:20)
[2022-03-15] MEDS ORDERED: INSULIN LISPRO 100 UNITS/ML SUBCUT NR (17:48)
[2022-03-15 21:05] LABS: CHLORIDE 106 mEq/L (98-107)
[2022-03-15] MEDS: INSULIN GLARGINE 100 UNITS/ML SUBCUT SCH (21:32)
[2022-03-16] VITALS (11 sets, daily range): BP systolic 89–128; BP diastolic 57–78
[2022-03-16 04:51] LABS: BASOPHILS % 0.5 % (0.0-2.0); EOSINOPHILS % 4.6 % (0.0-5.0); HEMATOCRIT. 34.2 % (42.0-52.0); HEMOGLOBIN. 11.3 g/dL (14.0-18.0); LYMPHOCYTES % 32.2 % (20.0-50.0); MEAN CORPUSCULAR HEMOGLOBIN 33.8 pg (28.0-32.0); MEAN CORPUSCULAR VOLUME 102.5 fL (80.0-94.0); MEAN PLATELET VOLUME 7.6 fl (7.4-10.4); MONOCYTES % 7.2 % (2.0-8.0); NEUTROPHILS % 55.5 % (40.0-76.0); PLATELET 256 x1000/uL (130-400); RED BLOOD CELL COUNT 3.34 mill/uL (4.7-6.1); RED CELL DISTRIBUTION WIDTH 14.3 % (11.6-14.6)
[2022-03-16 04:59] LABS: CHLORIDE 107 mEq/L (98-107)
[2022-03-16] MEDS: BLOOD SUGAR DIAGNOSTIC STRIP TEST SCH ×4 (06:30→21:23)
[2022-03-16] MEDS: INSULIN LISPRO 100 UNITS/ML SUBCUT SCH ×6 (07:00→21:20)
[2022-03-16] MEDS ORDERED: ERTU15TA PO (11:11)
[2022-03-16] MEDS ORDERED: APIX5TAB MT (11:11)
[2022-03-16] MEDS ORDERED: INSULIN LISPRO 100 UNITS/ML SUBCUT NR (12:00)
[2022-03-16] MEDS ORDERED: *PATIENT'S OWN MEDICATION STORAGE XX SCH (13:00)
[2022-03-16] MEDS: BIKTARVY PO SCH (15:19)
[2022-03-16] MEDS: DAPTOMYCIN 500 MG in SODIUM CHLORIDE 0.9% 50 ML IV SCH (17:39)
[2022-03-16] MEDS: HYDROCODONE/ACETAMINOPHEN 5/325MG TABLET PO PRN (19:22)
[2022-03-16] MEDS: INSULIN GLARGINE 100 UNITS/ML SUBCUT SCH (21:20)
[2022-03-17] VITALS: BP 140/98
[2022-03-17 04:00] VITALS: BP 145/93
[2022-03-17] MEDS: INSULIN LISPRO 100 UNITS/ML SUBCUT SCH ×7 (06:41→21:29)
[2022-03-17] MEDS: BLOOD SUGAR DIAGNOSTIC STRIP TEST SCH ×4 (06:54→21:33)
[2022-03-17 07:17] LABS: BASOPHILS % 0.4 % (0.0-2.0); HEMATOCRIT. 35.5 % (42.0-52.0); HEMOGLOBIN. 12.1 g/dL (14.0-18.0); LYMPHOCYTES % 42.3 % (20.0-50.0); MEAN CORPUSCULAR VOLUME 100.1 fL (80.0-94.0); MEAN PLATELET VOLUME 8.6 fl (7.4-10.4); MONOCYTES % 7.4 % (2.0-8.0); NEUTROPHILS % 45.9 % (40.0-76.0); PLATELET 263 x1000/uL (130-400); RED BLOOD CELL COUNT 3.54 mill/uL (4.7-6.1); RED CELL DISTRIBUTION WIDTH 13.8 % (11.6-14.6)
[2022-03-17 08:00] VITALS: BP 100/63
[2022-03-17 09:27] LABS: CHLORIDE 104 mEq/L (98-107)
[2022-03-17] MEDS: BIKTARVY PO SCH (09:30)
[2022-03-17] MEDS: HYDROCODONE/ACETAMINOPHEN 5/325MG TABLET PO PRN ×2 (09:31→20:24)
[2022-03-17] MEDS ORDERED: NALOXONE HCL 0.4MG/ML VIAL IV PRN (10:00)
[2022-03-17 12:00] VITALS: BP 102/65
[2022-03-17 16:00] VITALS: BP 119/78
[2022-03-17] MEDS: METFORMIN HCL 500MG TABLET PO SCH (17:20)
[2022-03-17] MEDS: DAPTOMYCIN 500 MG in SODIUM CHLORIDE 0.9% 50 ML IV SCH (18:00)
[2022-03-17 20:00] VITALS: BP 146/71
[2022-03-17] MEDS: INSULIN GLARGINE 100 UNITS/ML SUBCUT SCH (21:29)
[2022-03-18] VITALS: BP 112/70
[2022-03-18 04:00] VITALS: BP 114/73
[2022-03-18] MEDS: HYDROCODONE/ACETAMINOPHEN 5/325MG TABLET PO PRN ×2 (05:10→15:00)
[2022-03-18] MEDS: INSULIN LISPRO 100 UNITS/ML SUBCUT SCH ×6 (06:40→18:15)
[2022-03-18] MEDS: BLOOD SUGAR DIAGNOSTIC STRIP TEST SCH ×3 (06:41→17:07)
[2022-03-18 07:33] LABS: EOSINOPHILS % 5.2 % (0.0-5.0); HEMATOCRIT. 34.4 % (42.0-52.0); HEMOGLOBIN. 11.6 g/dL (14.0-18.0); MEAN CORPUSCULAR VOLUME 100.7 fL (80.0-94.0); MEAN PLATELET VOLUME 8.1 fl (7.4-10.4); NEUTROPHILS % 43.8 % (40.0-76.0); PLATELET 277 x1000/uL (130-400); RED BLOOD CELL COUNT 3.42 mill/uL (4.7-6.1)
[2022-03-18 08:00] VITALS: BP 114/62
[2022-03-18] MEDS: BIKTARVY PO SCH (09:10)
[2022-03-18] MEDS: METFORMIN HCL 500MG TABLET PO SCH ×2 (09:10→18:12)
[2022-03-18 10:16] LABS: CHLORIDE 102 mEq/L (98-107)
[2022-03-18 12:00] VITALS: BP 115/67
[2022-03-18 16:00] VITALS: BP 109/65
[2022-03-18] MEDS: DAPTOMYCIN 500 MG in SODIUM CHLORIDE 0.9% 50 ML IV SCH (18:12)
[2022-03-18 18:28] VITALS: BP 109/65
== END 2022-03-18 22:49 | disposition home health service (06) | DRG 951 ==
LOC: ER 04:44 → MICUNO 08:29 → EDBEDREQSVC 08:49 → EDBEDREQ 08:49 → ENRESERV 10:49 → 3WST 03-16 08:30
PROVIDERS: ADMIT Internal Medicine; ATTEND Internal Medicine
PROC: 0LBW0ZZ Excision of Left Foot Tendon, Open Approach (ICD-10-PCS; principal; 2022-03-17)
DX: E11.10 Type 2 diabetes mellitus with ketoacidosis without coma (principal); L97.529 Non-pressure chronic ulcer of other part of left foot with unspecified severity; M86.8X7 Other osteomyelitis, ankle and foot; D53.9 Nutritional anemia, unspecified; E11.65 Type 2 diabetes mellitus with hyperglycemia; F20.9 Schizophrenia, unspecified; E11.51 Type 2 diabetes mellitus with diabetic peripheral angiopathy without gangrene; E11.621 Type 2 diabetes mellitus with foot ulcer; H40.9 Unspecified glaucoma; I10 Essential (primary) hypertension; Z79.4 Long term (current) use of insulin; Z82.49 Family history of ischemic heart disease and other diseases of the circulatory system; W18.30XA Fall on same level, unspecified, initial encounter; Y92.002 Bathroom of unspecified non-institutional (private) residence as the place of occurrence of the external cause; Y93.89 Activity, other specified; Y99.8 Other external cause status
CPT/HCPCS: 36415; 71045; 80048; 80053; 81003; 82010; 82550; 82962; 83036; 84145; 85025; 85651; 93005; 93970; 99291; J0878; J1815; J7030; J7050

== ENCOUNTER 2022-03-22 16:52 | Inpatient (IN) | payer OTHER ==
[~2022-03-22] VITALS: Ht 177.8 cm; Wt 68.3 kg
[~2022-03-22 16:52] MED LIST changes: +APIX5TAB MT; +ERTU15TA PO
[2022-03-22] MEDS ORDERED: DEXTROSE 50% WATER 50ML SYRINGE IV ONE ×2 (18:30)
[2022-03-22] MEDS ORDERED: SODIUM CHLORIDE 0.9% 1,000 ML IV ONE (19:15)
[2022-03-22 19:30] LABS: BASOPHILS % 0.2 % (0.0-2.0); EOSINOPHILS % 0.1 % (0.0-5.0); HEMATOCRIT. 32.9 % (42.0-52.0); LYMPHOCYTES % 10.5 % (20.0-50.0); MEAN CORPUSCULAR HEMOGLOBIN 34.1 pg (28.0-32.0); MEAN CORPUSCULAR VOLUME 101.9 fL (80.0-94.0); MEAN PLATELET VOLUME 7.4 fl (7.4-10.4); MONOCYTES % 7.5 % (2.0-8.0); NEUTROPHILS % 81.7 % (40.0-76.0); PLATELET 250 x1000/uL (130-400); RED BLOOD CELL COUNT 3.23 mill/uL (4.7-6.1)
[2022-03-22 19:40] LABS: ETHANOL BLOOD < 10 mg/dL
[2022-03-22 19:50] LABS: PROTHROMBIN TIME 10.4 sec (9.6-11.0)
[2022-03-22 19:54] LABS: CHLORIDE 103 mEq/L (98-107)
[2022-03-22 21:03] LABS: CLARITY URINE CLEAR (CLEAR); COLOR URINE YELLOW (YELLOW); KETONES URINE NEGATIVE (NEGATIVE); LEUKOCYTE ESTERASE URINE NEGATIVE (NEGATIVE); NITRITE URINE NEGATIVE (NEGATIVE); OCCULT BLOOD URINE NEGATIVE (NEGATIVE); PH URINE 5.5 (4.5-8.0); PROTEIN URINE 1+ (NEGATIVE); SPECIFIC GRAVITY URINE 1.037 (1.005-1.030)
[2022-03-22 21:21] LABS: *AMPHETAMINES SCREEN URINE PRESUMTIVE POSITIVE (NEGATIVE); *BARBITURATES SCREEN URINE NEGATIVE (NEGATIVE); *BENZODIAZEPINES SCREEN URINE NEGATIVE (NEGATIVE); *COCAINE SCREEN URINE NEGATIVE (NEGATIVE); CANNABINOID URINE SCREEN NEGATIVE (NEGATIVE); METHADONE URINE SCREEN NEGATIVE (NEGATIVE); OPIATES URINE SCREEN NEGATIVE (NEGATIVE); PHENCYCLIDINE URINE SCREEN NEGATIVE (NEGATIVE)
[2022-03-22] MEDS ORDERED: DAPTOMYCIN 250 MG in SODIUM CHLORIDE 0.9% 50 ML IV SCH (22:15)
[2022-03-23 10:34] VITALS: BP 115/76
[2022-03-23 10:40] VITALS: BP 117/56
[2022-03-23] MEDS ORDERED: ACETAMINOPHEN 325MG TABLET PO PRN ×2 (11:00)
[2022-03-23] MEDS ORDERED: ONDANSETRON HCL 4MG/2ML INJ IV PRN (11:00)
[2022-03-23] MEDS ORDERED: DOCUSATE SODIUM 250MG CAPSULE PO PRN (11:00)
[2022-03-23] MEDS ORDERED: DOCUSATE SODIUM 100MG CAPSULE PO PRN (11:00)
[2022-03-23] MEDS ORDERED: CLONIDINE 0.1MG TABLET PO PRN (11:00)
[2022-03-23] MEDS ORDERED: IPRATROPIUM/ALBUTEROL 0.5-3(2.5)MG/3ML NEB HHN PRN (11:00)
[2022-03-23] MEDS ORDERED: LORAZEPAM 0.5MG TABLET PO PRN (11:00)
[2022-03-23] MEDS ORDERED: NALOXONE HCL 0.4MG/ML VIAL IV PRN (11:15)
[2022-03-23] MEDS ORDERED: FUROSEMIDE 40MG TABLET PO SCH (11:18)
[2022-03-23] MEDS ORDERED: ASPIRIN 81MG TABLET PO SCH (11:30)
[2022-03-23] MEDS ORDERED: DEXTROSE 50% WATER 50ML SYRINGE IV PRN (12:00)
[2022-03-23] MEDS: BLOOD SUGAR DIAGNOSTIC STRIP TEST SCH ×3 (12:12→21:00)
[2022-03-23] MEDS ORDERED: INSULIN LISPRO 100 UNITS/ML SUBCUT SCH (12:20)
[2022-03-23] MEDS ORDERED: CEFTRIAXONE 1 G PREMIX 50 ML IV SCH (15:15)
[2022-03-23] MEDS ORDERED: AZITHROMYCIN 500 MG TABLET PO NR (15:20)
[2022-03-23 15:54] VITALS: BP 131/92
[2022-03-23] MEDS: TIMOLOL MALEATE 0.5% OPHTH DROPS 5ML EACHEYE SCH (16:51)
[2022-03-23] MEDS: CEFTRIAXONE 1,000 MG in DEXTROSE 5% WATER 50 ML IV SCH (16:51)
[2022-03-23] MEDS: BIKTARVY PO SCH (16:51)
[2022-03-23] MEDS ORDERED: VANCOMYCIN 1.25GM PMX (XELLIA) 250 ML IV NR (18:00)
[2022-03-23] MEDS ORDERED: VANCOMYCIN 1250MG in DEXTROSE 5% WATER 250ML IV NR (18:00)
[2022-03-23] MEDS ORDERED: INSULIN GLARGINE 100 UNITS/ML SUBCUT SCH ×2 (18:02→22:00)
[2022-03-23] MEDS: INSULIN GLARGINE 100 UNITS/ML SUBCUT SCH (18:12)
[2022-03-23 20:00] VITALS: BP 123/79
[2022-03-23] MEDS: LATANOPROST 0.005% OPHTH DROPS 2.5ML EACHEYE SCH (21:00)
[2022-03-23] MEDS ORDERED: APIXABAN 5 MG TABLET PO SCH (21:00)
[2022-03-23] MEDS: ATORVASTATIN CALCIUM 40MG TABLET PO SCH (21:05)
[2022-03-23] MEDS: OSELTAMIVIR 75MG CAPSULE PO SCH (21:05)
[2022-03-23] MEDS: INSULIN LISPRO 100 UNITS/ML SUBCUT SCH (22:46)
[2022-03-24] VITALS: BP 134/91
[2022-03-24] MEDS: HYDROCODONE/ACETAMINOPHEN 5/325MG TABLET PO PRN ×3 (01:21→22:03)
[2022-03-24 04:00] VITALS: BP 138/87
[2022-03-24] MEDS: BLOOD SUGAR DIAGNOSTIC STRIP TEST SCH ×4 (06:08→22:01)
[2022-03-24] MEDS: INSULIN LISPRO 100 UNITS/ML SUBCUT SCH ×8 (06:08→22:04)
[2022-03-24 06:52] LABS: CHLORIDE 105 mEq/L (98-107)
[2022-03-24 06:55] LABS: HEMATOCRIT. 33.3 % (42.0-52.0); HEMOGLOBIN. 11.4 g/dL (14.0-18.0); MEAN CORPUSCULAR HEMOGLOBIN 34.4 pg (28.0-32.0); MEAN CORPUSCULAR VOLUME 100.7 fL (80.0-94.0); MEAN PLATELET VOLUME 7.5 fl (7.4-10.4); PLATELET 243 x1000/uL (130-400); RED BLOOD CELL COUNT 3.31 mill/uL (4.7-6.1); RED CELL DISTRIBUTION WIDTH 13.6 % (11.6-14.6)
[2022-03-24] MEDS ORDERED: VANCOMYCIN 1G PREMIX 200 ML IV SCH (07:00)
[2022-03-24 08:00] VITALS: BP 130/93
[2022-03-24] MEDS: LATANOPROST 0.005% OPHTH DROPS 2.5ML EACHEYE SCH (09:22)
[2022-03-24] MEDS: INSULIN GLARGINE 100 UNITS/ML SUBCUT SCH ×2 (09:24→22:05)
[2022-03-24] MEDS: OSELTAMIVIR 75MG CAPSULE PO SCH ×2 (09:26→21:58)
[2022-03-24] MEDS: BIKTARVY PO SCH (09:59)
[2022-03-24] MEDS: TIMOLOL MALEATE 0.5% OPHTH DROPS 5ML EACHEYE SCH ×2 (09:59→17:00)
[2022-03-24 12:00] VITALS: BP 130/93
[2022-03-24] MEDS ORDERED: AZITHROMYCIN 250 MG TABLET PO SCH (12:00)
[2022-03-24 14:32] LABS: PLATELET ESTIMATE NORMAL
[2022-03-24] MEDS: VANCOMYCIN 750MG PREMIX 150 ML IV SCH ×2 (16:49→22:04)
[2022-03-24] MEDS: CEFTRIAXONE 1,000 MG in DEXTROSE 5% WATER 50 ML IV SCH (19:54)
[2022-03-24] MEDS: ATORVASTATIN CALCIUM 40MG TABLET PO SCH (21:58)
[2022-03-25 04:00] VITALS: BP 157/96
[2022-03-25 04:29] LABS: CHLORIDE 103 mEq/L (98-107)
[2022-03-25] MEDS: VANCOMYCIN 750MG PREMIX 150 ML IV SCH (06:26)
[2022-03-25] MEDS: INSULIN LISPRO 100 UNITS/ML SUBCUT SCH (06:38)
[2022-03-25] MEDS: BLOOD SUGAR DIAGNOSTIC STRIP TEST SCH (06:39)
[2022-03-25 08:08] VITALS: BP 148/94
[2022-03-25] MEDS: TIMOLOL MALEATE 0.5% OPHTH DROPS 5ML EACHEYE SCH (09:23)
[2022-03-25] MEDS: BIKTARVY PO SCH (09:23)
[2022-03-25] MEDS: OSELTAMIVIR 75MG CAPSULE PO SCH (09:24)
[2022-03-25] MEDS: INSULIN GLARGINE 100 UNITS/ML SUBCUT SCH (09:26)
[2022-03-25] MEDS ORDERED: VANCOMYCIN 1G PREMIX 200 ML IV SCH (17:00)
== END 2022-03-25 09:40 | disposition left against medical advice (07) | DRG 710 ==
LOC: ER 16:52 → EDBEDREQTM 21:33 → EDBEDREQ 21:33 → 7WST 03-23 00:36 → MICUSO 03-23 00:57 → 3WST 03-23 09:59
PROVIDERS: ADMIT Internal Medicine; ATTEND Internal Medicine
PROC: 0QBR0ZZ Excision of Left Toe Phalanx, Open Approach (ICD-10-PCS; principal; 2022-03-24)
DX: E11.649 Type 2 diabetes mellitus with hypoglycemia without coma (principal); M86.8X7 Other osteomyelitis, ankle and foot; B20 Human immunodeficiency virus [HIV] disease; E11.69 Type 2 diabetes mellitus with other specified complication; E11.51 Type 2 diabetes mellitus with diabetic peripheral angiopathy without gangrene; D53.9 Nutritional anemia, unspecified; E78.5 Hyperlipidemia, unspecified; I10 Essential (primary) hypertension; F20.9 Schizophrenia, unspecified; J10.1 Influenza due to other identified influenza virus with other respiratory manifestations; H40.9 Unspecified glaucoma; R81 Glycosuria; Z53.29 Procedure and treatment not carried out because of patient's decision for other reasons; F15.90 Other stimulant use, unspecified, uncomplicated; Z79.899 Other long term (current) drug therapy; Z79.4 Long term (current) use of insulin
CPT/HCPCS: 36415; 71045; 80048; 80053; 80202; 80305; 80320; 81003; 82962; 83036; 83605; 84145; 84484; 85025; 87426; 87804; 88311; 93005; 99285; C1893; C9803; J0696; J0878; J1815; J3370; J7030; J7060; G0480

== ENCOUNTER 2022-03-25 20:38 | Inpatient (IN) | payer OTHER ==
[~2022-03-25] VITALS: Ht 177.8 cm; Wt 63.5 kg
[2022-03-26 04:15] LABS: BASOPHILS % 0.3 % (0.0-2.0); HEMATOCRIT. 34.1 % (42.0-52.0); HEMOGLOBIN. 11.5 g/dL (14.0-18.0); MEAN CORPUSCULAR HEMOGLOBIN 33.8 pg (28.0-32.0); MEAN CORPUSCULAR VOLUME 100.3 fL (80.0-94.0); MEAN PLATELET VOLUME 7.2 fl (7.4-10.4); MONOCYTES % 11.7 % (2.0-8.0); PLATELET 262 x1000/uL (130-400); RED CELL DISTRIBUTION WIDTH 13.5 % (11.6-14.6)
[2022-03-26 04:34] LABS: CHLORIDE 107 mEq/L (98-107)
[2022-03-26 08:40] LABS: CLARITY URINE CLEAR (CLEAR); COLOR URINE YELLOW (YELLOW); KETONES URINE TRACE (NEGATIVE); LEUKOCYTE ESTERASE URINE NEGATIVE (NEGATIVE); NITRITE URINE NEGATIVE (NEGATIVE); OCCULT BLOOD URINE NEGATIVE (NEGATIVE); PH URINE 5.5 (4.5-8.0); PROTEIN URINE NEGATIVE (NEGATIVE); SPECIFIC GRAVITY URINE 1.042 (1.005-1.030)
[2022-03-26] MEDS ORDERED: DIPHENHYDRAMINE 50MG/ML VIAL IV PRN (14:45)
[2022-03-26] MEDS ORDERED: CLONIDINE 0.1MG TABLET PO PRN (14:45)
[2022-03-26] MEDS ORDERED: ONDANSETRON HCL 4MG/2ML INJ IV PRN (14:45)
[2022-03-26] MEDS ORDERED: CEFTRIAXONE 1 G PREMIX 50 ML IV SCH (14:45)
[2022-03-26] MEDS ORDERED: VANCOMYCIN 1.25GM PMX (XELLIA) 250 ML IV NR (15:30)
[2022-03-26 16:00] VITALS: BP 152/88
[2022-03-26 17:15] VITALS: BP 152/88
[2022-03-26] MEDS ORDERED: DEXTROSE 50% WATER 50ML SYRINGE IV PRN (18:15)
[2022-03-26] MEDS ORDERED: INSULIN LISPRO 100 UNITS/ML SUBCUT NR (19:00)
[2022-03-26] MEDS ORDERED: INSULIN GLARGINE 100 UNITS/ML SUBCUT NR (21:00)
[2022-03-26] MEDS: BLOOD SUGAR DIAGNOSTIC STRIP TEST SCH (21:00)
[2022-03-26] MEDS: OSELTAMIVIR 75MG CAPSULE PO SCH (21:43)
[2022-03-26] MEDS: INSULIN LISPRO 100 UNITS/ML SUBCUT SCH (22:09)
[2022-03-26] MEDS ORDERED: VANCOMYCIN 750MG PREMIX 150 ML IV SCH (23:00)
[2022-03-26] MEDS ORDERED: CEFTRIAXONE 1,000 MG in DEXTROSE 5% WATER 50 ML IV NR (23:00)
[2022-03-27] MEDS: ACETAMINOPHEN 325MG TABLET PO PRN ×2 (03:19→22:49)
[2022-03-27] MEDS: BLOOD SUGAR DIAGNOSTIC STRIP TEST SCH ×4 (07:20→21:41)
[2022-03-27] MEDS: INSULIN LISPRO 100 UNITS/ML SUBCUT SCH ×4 (07:50→21:00)
[2022-03-27 08:00] VITALS: BP 143/103
[2022-03-27 08:15] LABS: BASOPHILS % 0.6 % (0.0-2.0); EOSINOPHILS % 2.8 % (0.0-5.0); HEMATOCRIT. 36.8 % (42.0-52.0); HEMOGLOBIN. 12.2 g/dL (14.0-18.0); LYMPHOCYTES % 53.2 % (20.0-50.0); MEAN CORPUSCULAR HEMOGLOBIN 33.4 pg (28.0-32.0); MEAN CORPUSCULAR VOLUME 100.6 fL (80.0-94.0); MEAN PLATELET VOLUME 6.8 fl (7.4-10.4); MONOCYTES % 8.9 % (2.0-8.0); NEUTROPHILS % 34.5 % (40.0-76.0); PLATELET 279 x1000/uL (130-400); RED BLOOD CELL COUNT 3.66 mill/uL (4.7-6.1); RED CELL DISTRIBUTION WIDTH 13.5 % (11.6-14.6)
[2022-03-27 08:35] LABS: CHLORIDE 103 mEq/L (98-107)
[2022-03-27] MEDS ORDERED: LIDOCAINE HCL 1% 10 MG/ML 10ML VIAL ONE (09:04)
[2022-03-27] MEDS: OSELTAMIVIR 75MG CAPSULE PO SCH ×2 (09:09→22:49)
[2022-03-27] MEDS: INSULIN GLARGINE 100 UNITS/ML SUBCUT SCH ×2 (10:00→21:48)
[2022-03-27 12:00] VITALS: BP 163/116
[2022-03-27 16:00] VITALS: BP 128/80
[2022-03-27] MEDS: VANCOMYCIN 1G PREMIX 200 ML IV SCH (18:11)
[2022-03-27 20:00] VITALS: BP 127/84
[2022-03-27] MEDS: CEFTRIAXONE 1,000 MG in DEXTROSE 5% WATER 50 ML IV SCH (22:50)
[2022-03-28] VITALS: BP 133/75
[2022-03-28 04:00] VITALS: BP 110/65
[2022-03-28] MEDS: BLOOD SUGAR DIAGNOSTIC STRIP TEST SCH ×4 (05:41→21:33)
[2022-03-28] MEDS: VANCOMYCIN 1G PREMIX 200 ML IV SCH ×2 (06:08→18:34)
[2022-03-28] MEDS: ACETAMINOPHEN 325MG TABLET PO PRN (06:18)
[2022-03-28] MEDS: INSULIN LISPRO 100 UNITS/ML SUBCUT SCH ×4 (07:15→21:33)
[2022-03-28 08:00] VITALS: BP 109/74
[2022-03-28] MEDS: OSELTAMIVIR 75MG CAPSULE PO SCH ×2 (09:35→21:20)
[2022-03-28] MEDS: INSULIN GLARGINE 100 UNITS/ML SUBCUT SCH ×2 (09:36→21:32)
[2022-03-28 12:00] VITALS: BP 149/99
[2022-03-28 16:00] VITALS: BP 122/84
[2022-03-28 20:23] VITALS: BP 120/72
[2022-03-28] MEDS: CEFTRIAXONE 1,000 MG in DEXTROSE 5% WATER 50 ML IV SCH (23:00)
[2022-03-29] VITALS: BP 118/72
[2022-03-29 04:00] VITALS: BP 124/70
[2022-03-29] MEDS: VANCOMYCIN 1G PREMIX 200 ML IV SCH ×2 (06:08→18:32)
[2022-03-29] MEDS: INSULIN LISPRO 100 UNITS/ML SUBCUT SCH ×4 (06:18→21:35)
[2022-03-29] MEDS: BLOOD SUGAR DIAGNOSTIC STRIP TEST SCH ×4 (06:18→21:15)
[2022-03-29] MEDS: OSELTAMIVIR 75MG CAPSULE PO SCH (07:55)
[2022-03-29] MEDS: ACETAMINOPHEN 325MG TABLET PO PRN ×2 (07:56→14:10)
[2022-03-29 08:00] VITALS: BP 120/76
[2022-03-29 08:20] LABS: CHLORIDE 105 mEq/L (98-107)
[2022-03-29] MEDS: INSULIN GLARGINE 100 UNITS/ML SUBCUT SCH ×2 (10:51→21:34)
[2022-03-29 12:00] VITALS: BP 129/81
[2022-03-29 16:00] VITALS: BP 128/81
[2022-03-29 20:00] VITALS: BP 114/71
[2022-03-29] MEDS: CEFTRIAXONE 1,000 MG in DEXTROSE 5% WATER 50 ML IV SCH (22:57)
[2022-03-30] VITALS: BP 125/75
[2022-03-30 04:00] VITALS: BP 140/84
[2022-03-30] MEDS: BLOOD SUGAR DIAGNOSTIC STRIP TEST SCH ×4 (06:17→21:49)
[2022-03-30] MEDS: VANCOMYCIN 1G PREMIX 200 ML IV SCH ×2 (06:18→18:00)
[2022-03-30] MEDS: INSULIN LISPRO 100 UNITS/ML SUBCUT SCH ×4 (06:45→21:48)
[2022-03-30 08:00] VITALS: BP 134/76
[2022-03-30] MEDS: ACETAMINOPHEN 325MG TABLET PO PRN ×3 (09:18→23:12)
[2022-03-30] MEDS: INSULIN GLARGINE 100 UNITS/ML SUBCUT SCH ×2 (09:20→21:59)
[2022-03-30 12:00] VITALS: BP 117/63
[2022-03-30 16:00] VITALS: BP 128/70
[2022-03-30 20:00] VITALS: BP 146/81
[2022-03-30] MEDS: CEFTRIAXONE 1,000 MG in DEXTROSE 5% WATER 50 ML IV SCH (22:03)
[2022-03-31] VITALS: BP 136/70
[2022-03-31 04:00] VITALS: BP 130/78
[2022-03-31] MEDS: ACETAMINOPHEN 325MG TABLET PO PRN ×3 (06:10→21:12)
[2022-03-31] MEDS: VANCOMYCIN 1G PREMIX 200 ML IV SCH ×2 (06:10→18:30)
[2022-03-31] MEDS: BLOOD SUGAR DIAGNOSTIC STRIP TEST SCH ×4 (07:52→20:30)
[2022-03-31 08:00] VITALS: BP 127/76
[2022-03-31] MEDS: INSULIN LISPRO 100 UNITS/ML SUBCUT SCH ×6 (08:03→20:30)
[2022-03-31] MEDS: INSULIN GLARGINE 100 UNITS/ML SUBCUT SCH ×2 (08:52→21:13)
[2022-03-31 12:00] VITALS: BP 115/74
[2022-03-31 16:00] VITALS: BP 117/47
[2022-03-31 20:00] VITALS: BP 110/65
[2022-03-31] MEDS: CEFTRIAXONE 1,000 MG in DEXTROSE 5% WATER 50 ML IV SCH (23:31)
[2022-04-01] VITALS: BP 130/78
[2022-04-01 04:00] VITALS: BP 115/72
[2022-04-01] MEDS: ACETAMINOPHEN 325MG TABLET PO PRN ×3 (06:28→15:35)
[2022-04-01] MEDS: BLOOD SUGAR DIAGNOSTIC STRIP TEST SCH ×2 (07:20→12:20)
[2022-04-01 07:31] LABS: BASOPHILS % 0.6 % (0.0-2.0); EOSINOPHILS % 1.9 % (0.0-5.0); HEMATOCRIT. 34.8 % (42.0-52.0); HEMOGLOBIN. 11.7 g/dL (14.0-18.0); LYMPHOCYTES % 36.8 % (20.0-50.0); MEAN CORPUSCULAR HEMOGLOBIN 33.5 pg (28.0-32.0); MEAN PLATELET VOLUME 6.9 fl (7.4-10.4); MONOCYTES % 6.5 % (2.0-8.0); NEUTROPHILS % 54.2 % (40.0-76.0); PLATELET 221 x1000/uL (130-400); RED BLOOD CELL COUNT 3.48 mill/uL (4.7-6.1); RED CELL DISTRIBUTION WIDTH 13.5 % (11.6-14.6)
[2022-04-01 08:00] VITALS: BP 86/59
[2022-04-01 08:13] LABS: CHLORIDE 101 mEq/L (98-107)
[2022-04-01] MEDS ORDERED: VANCOMYCIN 1G PREMIX 200 ML IV SCH (10:00)
[2022-04-01] MEDS: INSULIN GLARGINE 100 UNITS/ML SUBCUT SCH (10:41)
[2022-04-01 12:00] VITALS: BP 99/86
[2022-04-01] MEDS: INSULIN LISPRO 100 UNITS/ML SUBCUT SCH ×2 (12:20→15:57)
[2022-04-01 16:00] VITALS: BP 116/74
== END 2022-04-01 17:50 | disposition home or self-care (01) | DRG 317 ==
LOC: ER 20:38 → 6EST 03-26 04:01
PROVIDERS: ADMIT Internal Medicine; ATTEND Internal Medicine
PROC: 05HY33Z Insertion of Infusion Device into Upper Vein, Percutaneous Approach (ICD-10-PCS; 2022-03-27)
PROC: B54MZZA Ultrasonography of Right Upper Extremity Veins, Guidance (ICD-10-PCS; 2022-03-27)
PROC: 0LBW0ZZ Excision of Left Foot Tendon, Open Approach (ICD-10-PCS; principal; 2022-03-28)
DX: E11.69 Type 2 diabetes mellitus with other specified complication (principal); M86.8X7 Other osteomyelitis, ankle and foot; E11.649 Type 2 diabetes mellitus with hypoglycemia without coma; E11.51 Type 2 diabetes mellitus with diabetic peripheral angiopathy without gangrene; E44.0 Moderate protein-calorie malnutrition; D53.9 Nutritional anemia, unspecified; F15.90 Other stimulant use, unspecified, uncomplicated; Z20.822 Contact with and (suspected) exposure to COVID-19; F20.9 Schizophrenia, unspecified; I10 Essential (primary) hypertension; H40.9 Unspecified glaucoma; Z79.4 Long term (current) use of insulin
CPT/HCPCS: 36415; 36573; 71045; 80048; 80053; 80202; 81003; 82962; 83036; 84145; 85025; 87426; 93970; 99285; C1725; C1769; J0696; J1815; J3370; J3490; J7060

== ENCOUNTER 2022-04-18 06:34 | Inpatient (IN) | payer OTHER ==
[~2022-04-18] VITALS: Ht 165.1 cm; Wt 63.7 kg
[~2022-04-18 06:34] MED LIST changes: -APIX5TAB MT; -LEVO-65 MT
[2022-04-18] MEDS ORDERED: SODIUM CHLORIDE 0.9% 1000ML BAG (SEPSIS BOLUS) IV ONE (07:00)
[2022-04-18 08:47] LABS: BG CARBOXYHEMOGLOBIN 1.9 % (0.5-1.5); BG DEOXYHEMOGLOBIN 1.6 % (0.0-5.0); BG FRACTION INSPIRED OXYGEN 21; BG HCO3 ACT 30.4 mmol/L (22.0-26.0); BG METHEMOGLOBIN 0.3 % (0.0-1.5); BG OXYGEN SATURATION 98.4 % (92.0-98.5); BG OXYHEMOGLOBIN 96.2 % (94.0-97.0); BG PCO2 48.5 mmHg (35.0-45.0); BG PH 7.415 (7.350-7.450); BG PO2 107.8 mmHg (75.0-100.0); BG SAMPLE SITE LEFT RADIAL; BG TOTAL HEMOGLOBIN 11.5 g/dL (12.0-18.0); BG VENT MODE ROOM AIR
[2022-04-18] MEDS ORDERED: PIPERACILLIN/TAZ 3.375G PREMIX 50 ML IV ONE (09:00)
[2022-04-18 09:27] LABS: PROTHROMBIN TIME 10.7 sec (9.6-11.0)
[2022-04-18 09:31] LABS: CHLORIDE 102 mEq/L (98-107)
[2022-04-18] MEDS ORDERED: LIDOCAINE HCL 1% 30ML VIAL (10MG/ML) ONE (09:31)
[2022-04-18 09:43] LABS: CREATINE KINASE 670 IU/L (39-308); ETHANOL BLOOD < 10 mg/dL
[2022-04-18] MEDS ORDERED: DEXTROSE 50% WATER 50ML SYRINGE IV ONE (10:00)
[2022-04-18 10:36] LABS: CLARITY URINE CLEAR (CLEAR); COLOR URINE YELLOW (YELLOW); KETONES URINE TRACE (NEGATIVE); LEUKOCYTE ESTERASE URINE NEGATIVE (NEGATIVE); NITRITE URINE NEGATIVE (NEGATIVE); OCCULT BLOOD URINE NEGATIVE (NEGATIVE); PH URINE 5.5 (4.5-8.0); PROTEIN URINE TRACE (NEGATIVE); SPECIFIC GRAVITY URINE 1.032 (1.005-1.030); UROBILINOGEN URINE 0.2 E.U./dL (0.2-1.0)
[2022-04-18 11:36] LABS: *AMPHETAMINES SCREEN URINE PRESUMTIVE POSITIVE (NEGATIVE); *BARBITURATES SCREEN URINE NEGATIVE (NEGATIVE); *BENZODIAZEPINES SCREEN URINE NEGATIVE (NEGATIVE); *COCAINE SCREEN URINE PRESUMTIVE POSITIVE (NEGATIVE); CANNABINOID URINE SCREEN NEGATIVE (NEGATIVE); METHADONE URINE SCREEN NEGATIVE (NEGATIVE); OPIATES URINE SCREEN NEGATIVE (NEGATIVE); PHENCYCLIDINE URINE SCREEN NEGATIVE (NEGATIVE)
[2022-04-18 12:13] LABS: BASOPHILS % 0.3 % (0.0-2.0); EOSINOPHILS % 3.1 % (0.0-5.0); HEMATOCRIT. 29.6 % (42.0-52.0); HEMOGLOBIN. 10.1 g/dL (14.0-18.0); LYMPHOCYTES % 40.4 % (20.0-50.0); MEAN CORPUSCULAR HEMOGLOBIN 33.5 pg (28.0-32.0); MEAN CORPUSCULAR VOLUME 98.4 fL (80.0-94.0); MEAN PLATELET VOLUME 7.3 fl (7.4-10.4); MONOCYTES % 11.8 % (2.0-8.0); NEUTROPHILS % 44.4 % (40.0-76.0); PLATELET 258 x1000/uL (130-400); RED BLOOD CELL COUNT 3.01 mill/uL (4.7-6.1); RED CELL DISTRIBUTION WIDTH 13.2 % (11.6-14.6)
[2022-04-18] MEDS ORDERED: ONDANSETRON HCL 4MG/2ML INJ IV PRN (14:45)
[2022-04-18] MEDS ORDERED: IPRATROPIUM/ALBUTEROL 0.5-3(2.5)MG/3ML NEB HHN PRN (14:45)
[2022-04-18] MEDS ORDERED: LORAZEPAM 0.5MG TABLET PO PRN (14:45)
[2022-04-18] MEDS ORDERED: ACETAMINOPHEN 325MG TABLET PO PRN (14:45)
[2022-04-18] MEDS ORDERED: DOCUSATE SODIUM 100MG CAPSULE PO PRN (14:45)
[2022-04-18] MEDS ORDERED: CLONIDINE 0.1MG TABLET PO PRN (14:45)
[2022-04-18] MEDS ORDERED: VANCOMYCIN 1.25GM PMX (XELLIA) 250 ML IV NR (15:15)
[2022-04-18] MEDS ORDERED: NALOXONE HCL 0.4MG/ML VIAL IV PRN (15:30)
[2022-04-18] MEDS: PIPERACILLIN/TAZOBACTAM 3.375 G in DEXTROSE 5% WATER 50 ML IV SCH (20:30)
[2022-04-19] MEDS: VANCOMYCIN 1G PREMIX 200 ML IV SCH ×2 (00:31→12:30)
[2022-04-19] MEDS ORDERED: DEXTROSE 50% WATER 50ML SYRINGE IV PRN (01:30)
[2022-04-19 05:45] LABS: BASOPHILS % 0.7 % (0.0-2.0); EOSINOPHILS % 2.9 % (0.0-5.0); HEMATOCRIT. 33.6 % (42.0-52.0); HEMOGLOBIN. 11.2 g/dL (14.0-18.0); LYMPHOCYTES % 41.4 % (20.0-50.0); MEAN CORPUSCULAR HEMOGLOBIN 33.4 pg (28.0-32.0); MEAN CORPUSCULAR VOLUME 100.4 fL (80.0-94.0); MEAN PLATELET VOLUME 7.2 fl (7.4-10.4); MONOCYTES % 10.7 % (2.0-8.0); NEUTROPHILS % 44.3 % (40.0-76.0); PLATELET 245 x1000/uL (130-400); RED BLOOD CELL COUNT 3.34 mill/uL (4.7-6.1); RED CELL DISTRIBUTION WIDTH 13.3 % (11.6-14.6)
[2022-04-19 05:49] LABS: CHLORIDE 106 mEq/L (98-107)
[2022-04-19] MEDS: PIPERACILLIN/TAZOBACTAM 3.375 G in DEXTROSE 5% WATER 50 ML IV SCH ×3 (07:40→20:49)
[2022-04-19] MEDS: BLOOD SUGAR DIAGNOSTIC STRIP TEST SCH ×4 (07:55→20:49)
[2022-04-19] MEDS: INSULIN LISPRO 100 UNITS/ML SUBCUT SCH ×6 (07:56→20:50)
[2022-04-19] MEDS ORDERED: DOCUSATE SODIUM 250MG CAPSULE PO PRN (11:15)
[2022-04-19] MEDS: ASPIRIN 81MG TABLET PO SCH (12:19)
[2022-04-19] MEDS: FUROSEMIDE 40MG TABLET PO SCH (12:22)
[2022-04-19] MEDS: INSULIN GLARGINE 100 UNITS/ML SUBCUT SCH (12:39)
[2022-04-19 14:00] VITALS: BP 132/75
[2022-04-19] MEDS: HYDROCODONE/ACETAMINOPHEN 5/325MG TABLET PO PRN (15:54)
[2022-04-19 16:00] VITALS: BP 129/80
[2022-04-19 16:10] VITALS: BP 132/75
[2022-04-19] MEDS: TIMOLOL MALEATE 0.5% OPHTH DROPS 5ML EACHEYE SCH (19:09)
[2022-04-19] MEDS: METFORMIN HCL 500MG TABLET PO SCH (19:14)
[2022-04-19 20:00] VITALS: BP 122/64
[2022-04-19] MEDS: ATORVASTATIN CALCIUM 40MG TABLET PO SCH (20:49)
[2022-04-19] MEDS: LATANOPROST 0.005% OPHTH DROPS 2.5ML EACHEYE SCH (20:50)
[2022-04-20] VITALS (7 sets, daily range): BP systolic 97–134; BP diastolic 49–86
[2022-04-20] MEDS: BLOOD SUGAR DIAGNOSTIC STRIP TEST SCH ×4 (05:57→20:32)
[2022-04-20] MEDS: INSULIN LISPRO 100 UNITS/ML SUBCUT SCH ×7 (05:57→20:34)
[2022-04-20] MEDS: PIPERACILLIN/TAZOBACTAM 3.375 G in DEXTROSE 5% WATER 50 ML IV SCH ×3 (05:58→22:12)
[2022-04-20] MEDS: HYDROCODONE/ACETAMINOPHEN 5/325MG TABLET PO PRN ×3 (06:59→17:28)
[2022-04-20] MEDS: GABAPENTIN 400MG CAPSULE PO SCH ×3 (08:00→22:11)
[2022-04-20] MEDS: BIKTARVY TABLET PO SCH ×2 (09:00→15:07)
[2022-04-20] MEDS: ASPIRIN 81MG TABLET PO SCH (09:47)
[2022-04-20] MEDS: TIMOLOL MALEATE 0.5% OPHTH DROPS 5ML EACHEYE SCH ×2 (09:47→17:28)
[2022-04-20] MEDS: METFORMIN HCL 500MG TABLET PO SCH ×2 (09:48→17:48)
[2022-04-20] MEDS: FUROSEMIDE 40MG TABLET PO SCH (09:51)
[2022-04-20] MEDS: INSULIN GLARGINE 100 UNITS/ML SUBCUT SCH (09:52)
[2022-04-20] MEDS: VANCOMYCIN 1G PREMIX 200 ML IV SCH ×3 (11:34→19:58)
[2022-04-20] MEDS ORDERED: INSULIN GLARGINE 100 UNITS/ML SUBCUT SCH (12:30)
[2022-04-20] MEDS ORDERED: *PATIENT'S OWN MEDICATION STORAGE XX SCH (15:15)
[2022-04-20] MEDS: ATORVASTATIN CALCIUM 40MG TABLET PO SCH (20:49)
[2022-04-20] MEDS: LATANOPROST 0.005% OPHTH DROPS 2.5ML EACHEYE SCH (20:50)
[2022-04-21] VITALS: BP 99/51
[2022-04-21] MEDS: VANCOMYCIN 1G PREMIX 200 ML IV SCH ×3 (03:02→20:43)
[2022-04-21 04:00] VITALS: BP 116/53
[2022-04-21] MEDS: GABAPENTIN 400MG CAPSULE PO SCH ×3 (05:46→21:03)
[2022-04-21] MEDS: PIPERACILLIN/TAZOBACTAM 3.375 G in DEXTROSE 5% WATER 50 ML IV SCH ×3 (05:46→21:03)
[2022-04-21] MEDS: BLOOD SUGAR DIAGNOSTIC STRIP TEST SCH ×4 (05:46→20:26)
[2022-04-21] MEDS: INSULIN LISPRO 100 UNITS/ML SUBCUT SCH ×7 (05:49→20:57)
[2022-04-21 06:37] LABS: BASOPHILS % 0.6 % (0.0-2.0); EOSINOPHILS % 3.7 % (0.0-5.0); HEMATOCRIT. 32.1 % (42.0-52.0); LYMPHOCYTES % 40.9 % (20.0-50.0); MEAN CORPUSCULAR HEMOGLOBIN 34.2 pg (28.0-32.0); MEAN CORPUSCULAR VOLUME 99.3 fL (80.0-94.0); MEAN PLATELET VOLUME 7.2 fl (7.4-10.4); MONOCYTES % 8.6 % (2.0-8.0); NEUTROPHILS % 46.2 % (40.0-76.0); PLATELET 226 x1000/uL (130-400); RED BLOOD CELL COUNT 3.23 mill/uL (4.7-6.1); RED CELL DISTRIBUTION WIDTH 12.7 % (11.6-14.6)
[2022-04-21 07:30] LABS: CHLORIDE 102 mEq/L (98-107)
[2022-04-21 07:50] LABS: FOLIC ACID (FOLATE) SERUM 15.1 ng/mL (>5.38)
[2022-04-21 08:00] VITALS: BP 116/65
[2022-04-21] MEDS: TIMOLOL MALEATE 0.5% OPHTH DROPS 5ML EACHEYE SCH ×2 (08:36→17:44)
[2022-04-21] MEDS: FUROSEMIDE 40MG TABLET PO SCH (08:36)
[2022-04-21] MEDS: ASPIRIN 81MG TABLET PO SCH (08:36)
[2022-04-21] MEDS: METFORMIN HCL 500MG TABLET PO SCH ×2 (08:36→17:43)
[2022-04-21] MEDS: BIKTARVY TABLET PO SCH (08:45)
[2022-04-21] MEDS ORDERED: INSULIN GLARGINE 100 UNITS/ML SUBCUT SCH (10:00)
[2022-04-21 12:00] VITALS: BP 108/68
[2022-04-21 16:00] VITALS: BP 108/61
[2022-04-21 19:51] VITALS: BP 99/49
[2022-04-21] MEDS: LATANOPROST 0.005% OPHTH DROPS 2.5ML EACHEYE SCH (20:43)
[2022-04-21] MEDS: ATORVASTATIN CALCIUM 40MG TABLET PO SCH (20:44)
[2022-04-21] MEDS: HYDROCODONE/ACETAMINOPHEN 5/325MG TABLET PO PRN (20:44)
[2022-04-22] VITALS: BP 126/48
[2022-04-22 04:00] VITALS: BP 130/74
[2022-04-22] MEDS: VANCOMYCIN 1G PREMIX 200 ML IV SCH ×3 (05:20→22:56)
[2022-04-22] MEDS: HYDROCODONE/ACETAMINOPHEN 5/325MG TABLET PO PRN ×3 (05:28→20:43)
[2022-04-22] MEDS: BLOOD SUGAR DIAGNOSTIC STRIP TEST SCH ×4 (05:29→21:39)
[2022-04-22] MEDS: GABAPENTIN 400MG CAPSULE PO SCH ×3 (05:29→21:35)
[2022-04-22] MEDS: PIPERACILLIN/TAZOBACTAM 3.375 G in DEXTROSE 5% WATER 50 ML IV SCH ×3 (05:29→22:00)
[2022-04-22 06:05] LABS: CHLORIDE 102 mEq/L (98-107)
[2022-04-22 06:13] LABS: VANCOMYCIN TROUGH 16.4 ug/mL (5.0-10.0)
[2022-04-22 08:00] VITALS: BP 114/70
[2022-04-22] MEDS ORDERED: INSULIN GLARGINE 100 UNITS/ML SUBCUT ONE (09:30)
[2022-04-22] MEDS: BIKTARVY TABLET PO SCH (09:34)
[2022-04-22] MEDS: INSULIN LISPRO 100 UNITS/ML SUBCUT SCH ×6 (09:34→21:45)
[2022-04-22] MEDS: METFORMIN HCL 500MG TABLET PO SCH ×2 (09:35→17:51)
[2022-04-22] MEDS: ASPIRIN 81MG TABLET PO SCH (09:36)
[2022-04-22] MEDS: FUROSEMIDE 40MG TABLET PO SCH (09:40)
[2022-04-22] MEDS: TIMOLOL MALEATE 0.5% OPHTH DROPS 5ML EACHEYE SCH ×2 (09:40→17:49)
[2022-04-22] MEDS: INSULIN GLARGINE 100 UNITS/ML SUBCUT SCH (11:12)
[2022-04-22 12:04] VITALS: BP 100/56
[2022-04-22 16:00] VITALS: BP 114/69
[2022-04-22 20:00] VITALS: BP 117/66
[2022-04-22] MEDS: ATORVASTATIN CALCIUM 40MG TABLET PO SCH (20:42)
[2022-04-22] MEDS: LATANOPROST 0.005% OPHTH DROPS 2.5ML EACHEYE SCH (20:43)
[2022-04-23] VITALS: BP 108/64
[2022-04-23] MEDS: HYDROCODONE/ACETAMINOPHEN 5/325MG TABLET PO PRN (03:57)
[2022-04-23 04:00] VITALS: BP 113/64
[2022-04-23] MEDS: PIPERACILLIN/TAZOBACTAM 3.375 G in DEXTROSE 5% WATER 50 ML IV SCH ×2 (05:34→14:22)
[2022-04-23] MEDS: GABAPENTIN 400MG CAPSULE PO SCH ×3 (05:42→21:25)
[2022-04-23] MEDS: VANCOMYCIN 1G PREMIX 200 ML IV SCH (06:24)
[2022-04-23] MEDS: BLOOD SUGAR DIAGNOSTIC STRIP TEST SCH ×4 (06:34→21:13)
[2022-04-23 07:07] LABS: CHLORIDE 97 mEq/L (98-107)
[2022-04-23 07:25] LABS: VANCOMYCIN TROUGH 19.2 ug/mL (5.0-10.0)
[2022-04-23 08:00] VITALS: BP 110/67
[2022-04-23] MEDS: ASPIRIN 81MG TABLET PO SCH (08:48)
[2022-04-23] MEDS: METFORMIN HCL 500MG TABLET PO SCH ×2 (08:48→17:49)
[2022-04-23] MEDS: FUROSEMIDE 40MG TABLET PO SCH (08:48)
[2022-04-23] MEDS: TIMOLOL MALEATE 0.5% OPHTH DROPS 5ML EACHEYE SCH ×2 (08:48→17:48)
[2022-04-23] MEDS: BIKTARVY TABLET PO SCH (08:49)
[2022-04-23] MEDS: INSULIN LISPRO 100 UNITS/ML SUBCUT SCH ×7 (09:00→21:35)
[2022-04-23] MEDS: INSULIN GLARGINE 100 UNITS/ML SUBCUT SCH (09:02)
[2022-04-23 12:00] VITALS: BP 125/52
[2022-04-23] MEDS ORDERED: IPRATROPIUM BROMIDE (0.02%) 0.5MG/2.5ML NEB HHN PRN (12:15)
[2022-04-23] MEDS ORDERED: ALBUTEROL (0.083%) 2.5MG/3ML NEB HHN PRN (12:15)
[2022-04-23 16:00] VITALS: BP 124/65
[2022-04-23] MEDS: ACETAMINOPHEN 325MG TABLET PO PRN ×2 (16:43→18:02)
[2022-04-23] MEDS: VANCOMYCIN 1.25GM PMX (XELLIA) 250 ML IV SCH (17:48)
[2022-04-23 20:00] VITALS: BP 131/72
[2022-04-23] MEDS: LATANOPROST 0.005% OPHTH DROPS 2.5ML EACHEYE SCH (21:27)
[2022-04-23] MEDS: ATORVASTATIN CALCIUM 40MG TABLET PO SCH (21:27)
[2022-04-24] VITALS (7 sets, daily range): BP systolic 94–146; BP diastolic 54–86
[2022-04-24] MEDS: ACETAMINOPHEN 325MG TABLET PO PRN (01:42)
[2022-04-24] MEDS: BLOOD SUGAR DIAGNOSTIC STRIP TEST SCH ×4 (06:40→21:00)
[2022-04-24] MEDS: GABAPENTIN 400MG CAPSULE PO SCH ×3 (06:52→22:14)
[2022-04-24] MEDS: VANCOMYCIN 1.25GM PMX (XELLIA) 250 ML IV SCH ×2 (06:52→19:29)
[2022-04-24] MEDS: INSULIN LISPRO 100 UNITS/ML SUBCUT SCH ×7 (09:02→22:15)
[2022-04-24] MEDS: TIMOLOL MALEATE 0.5% OPHTH DROPS 5ML EACHEYE SCH ×2 (09:03→19:22)
[2022-04-24] MEDS: ASPIRIN 81MG TABLET PO SCH (09:03)
[2022-04-24] MEDS: FUROSEMIDE 40MG TABLET PO SCH (09:03)
[2022-04-24] MEDS: BIKTARVY TABLET PO SCH (09:04)
[2022-04-24] MEDS: METFORMIN HCL 500MG TABLET PO SCH ×2 (09:04→19:24)
[2022-04-24] MEDS: INSULIN GLARGINE 100 UNITS/ML SUBCUT SCH (10:20)
[2022-04-24] MEDS: LATANOPROST 0.005% OPHTH DROPS 2.5ML EACHEYE SCH (21:00)
[2022-04-24] MEDS: ATORVASTATIN CALCIUM 40MG TABLET PO SCH (22:14)
[2022-04-25] VITALS: BP 98/46
[2022-04-25 03:26] LABS: CHLORIDE 100 mEq/L (98-107)
[2022-04-25 04:00] VITALS: BP 107/65
[2022-04-25] MEDS: GABAPENTIN 400MG CAPSULE PO SCH ×3 (06:51→21:25)
[2022-04-25] MEDS: INSULIN LISPRO 100 UNITS/ML SUBCUT SCH ×7 (06:51→20:41)
[2022-04-25] MEDS: BLOOD SUGAR DIAGNOSTIC STRIP TEST SCH ×4 (07:40→20:40)
[2022-04-25 08:00] VITALS: BP 99/47
[2022-04-25] MEDS: METFORMIN HCL 500MG TABLET PO SCH ×2 (09:38→17:52)
[2022-04-25] MEDS: ASPIRIN 81MG TABLET PO SCH (09:38)
[2022-04-25] MEDS: ACETAMINOPHEN 325MG TABLET PO PRN (09:38)
[2022-04-25] MEDS: TIMOLOL MALEATE 0.5% OPHTH DROPS 5ML EACHEYE SCH ×2 (09:39→17:51)
[2022-04-25] MEDS: BIKTARVY TABLET PO SCH (09:39)
[2022-04-25] MEDS: INSULIN GLARGINE 100 UNITS/ML SUBCUT SCH (09:43)
[2022-04-25] MEDS: FUROSEMIDE 40MG TABLET PO SCH (09:54)
[2022-04-25] MEDS ORDERED: NALOXONE HCL 0.4MG/ML VIAL IV PRN (11:30)
[2022-04-25 12:00] VITALS: BP 95/57
[2022-04-25 16:00] VITALS: BP 131/82
[2022-04-25] MEDS: VANCOMYCIN 1.25GM PMX (XELLIA) 250 ML IV SCH (17:52)
[2022-04-25 20:00] VITALS: BP 108/56
[2022-04-25] MEDS: LATANOPROST 0.005% OPHTH DROPS 2.5ML EACHEYE SCH (20:38)
[2022-04-25] MEDS: ATORVASTATIN CALCIUM 40MG TABLET PO SCH (20:39)
[2022-04-25] MEDS: HYDROCODONE/ACETAMINOPHEN 5/325MG TABLET PO PRN (20:40)
[2022-04-26] VITALS: BP 104/68
[2022-04-26 04:00] VITALS: BP 106/68
[2022-04-26] MEDS: VANCOMYCIN 1.25GM PMX (XELLIA) 250 ML IV SCH ×2 (05:03→17:44)
[2022-04-26] MEDS: GABAPENTIN 400MG CAPSULE PO SCH ×3 (05:03→22:06)
[2022-04-26] MEDS: HYDROCODONE/ACETAMINOPHEN 5/325MG TABLET PO PRN ×3 (05:04→17:44)
[2022-04-26] MEDS: BLOOD SUGAR DIAGNOSTIC STRIP TEST SCH ×4 (07:22→21:00)
[2022-04-26] MEDS: INSULIN LISPRO 100 UNITS/ML SUBCUT SCH ×7 (07:52→21:00)
[2022-04-26 08:00] VITALS: BP 117/78
[2022-04-26] MEDS: METFORMIN HCL 500MG TABLET PO SCH ×2 (08:59→17:43)
[2022-04-26] MEDS: ASPIRIN 81MG TABLET PO SCH (08:59)
[2022-04-26] MEDS: FUROSEMIDE 40MG TABLET PO SCH (08:59)
[2022-04-26] MEDS: BIKTARVY TABLET PO SCH (08:59)
[2022-04-26] MEDS: TIMOLOL MALEATE 0.5% OPHTH DROPS 5ML EACHEYE SCH ×2 (09:00→17:48)
[2022-04-26] MEDS: INSULIN GLARGINE 100 UNITS/ML SUBCUT SCH (09:01)
[2022-04-26 12:00] VITALS: BP 103/61
[2022-04-26 16:00] VITALS: BP 105/69
[2022-04-26 20:00] VITALS: BP 102/63
[2022-04-26] MEDS: LATANOPROST 0.005% OPHTH DROPS 2.5ML EACHEYE SCH (22:05)
[2022-04-26] MEDS: ATORVASTATIN CALCIUM 40MG TABLET PO SCH (22:06)
[2022-04-27] VITALS: BP 98/57
[2022-04-27 04:00] VITALS: BP 121/78
[2022-04-27] MEDS: GABAPENTIN 400MG CAPSULE PO SCH ×3 (07:14→20:46)
[2022-04-27] MEDS: BLOOD SUGAR DIAGNOSTIC STRIP TEST SCH ×4 (07:14→20:46)
[2022-04-27] MEDS: VANCOMYCIN 1.25GM PMX (XELLIA) 250 ML IV SCH ×2 (07:15→17:16)
[2022-04-27 08:00] VITALS: BP 128/75
[2022-04-27] MEDS: ASPIRIN 81MG TABLET PO SCH (08:10)
[2022-04-27] MEDS: FUROSEMIDE 40MG TABLET PO SCH (08:10)
[2022-04-27] MEDS: METFORMIN HCL 500MG TABLET PO SCH ×2 (08:10→17:14)
[2022-04-27] MEDS: TIMOLOL MALEATE 0.5% OPHTH DROPS 5ML EACHEYE SCH ×2 (08:11→17:15)
[2022-04-27] MEDS: BIKTARVY TABLET PO SCH (08:11)
[2022-04-27] MEDS: INSULIN LISPRO 100 UNITS/ML SUBCUT SCH ×7 (08:13→20:46)
[2022-04-27] MEDS: INSULIN GLARGINE 100 UNITS/ML SUBCUT SCH (10:33)
[2022-04-27 12:00] VITALS: BP 119/74
[2022-04-27 16:00] VITALS: BP 109/66
[2022-04-27] MEDS: HYDROCODONE/ACETAMINOPHEN 5/325MG TABLET PO PRN (17:15)
[2022-04-27 20:00] VITALS: BP 123/74
[2022-04-27] MEDS: ATORVASTATIN CALCIUM 40MG TABLET PO SCH (20:45)
[2022-04-27] MEDS: LATANOPROST 0.005% OPHTH DROPS 2.5ML EACHEYE SCH (20:45)
[2022-04-28] VITALS: BP 103/51
[2022-04-28 04:00] VITALS: BP 94/55
[2022-04-28] MEDS: GABAPENTIN 400MG CAPSULE PO SCH ×2 (05:35→15:19)
[2022-04-28] MEDS: VANCOMYCIN 1.25GM PMX (XELLIA) 250 ML IV SCH ×2 (05:36→18:00)
[2022-04-28] MEDS: HYDROCODONE/ACETAMINOPHEN 5/325MG TABLET PO PRN ×2 (05:36→15:20)
[2022-04-28] MEDS: INSULIN LISPRO 100 UNITS/ML SUBCUT SCH ×6 (05:36→17:53)
[2022-04-28] MEDS: BLOOD SUGAR DIAGNOSTIC STRIP TEST SCH ×3 (05:36→17:51)
[2022-04-28 08:00] VITALS: BP 102/75
[2022-04-28] MEDS: ASPIRIN 81MG TABLET PO SCH (09:45)
[2022-04-28] MEDS: FUROSEMIDE 40MG TABLET PO SCH (09:45)
[2022-04-28] MEDS: METFORMIN HCL 500MG TABLET PO SCH ×2 (09:45→18:10)
[2022-04-28] MEDS: BIKTARVY TABLET PO SCH (09:46)
[2022-04-28] MEDS: TIMOLOL MALEATE 0.5% OPHTH DROPS 5ML EACHEYE SCH ×2 (09:46→17:25)
[2022-04-28] MEDS: INSULIN GLARGINE 100 UNITS/ML SUBCUT SCH (09:53)
[2022-04-28 12:00] VITALS: BP 115/77
[2022-04-28 16:00] VITALS: BP 119/77
== END 2022-04-28 20:55 | disposition home health service (06) | DRG 317 ==
LOC: ER 06:34 → MICUSO 10:35 → EDBEDREQ 10:39 → EDBEDREQTM 10:39 → 7WST 04-19 14:10
PROVIDERS: ADMIT Internal Medicine; ATTEND Internal Medicine
PROC: 02HV33Z Insertion of Infusion Device into Superior Vena Cava, Percutaneous Approach (ICD-10-PCS; 2022-04-18)
PROC: B548ZZA Ultrasonography of Superior Vena Cava, Guidance (ICD-10-PCS; 2022-04-18)
PROC: 0JBR0ZZ Excision of Left Foot Subcutaneous Tissue and Fascia, Open Approach (ICD-10-PCS; 2022-04-22)
PROC: 0LBW0ZZ Excision of Left Foot Tendon, Open Approach (ICD-10-PCS; principal; 2022-04-27)
PROC: 0JBR0ZZ Excision of Left Foot Subcutaneous Tissue and Fascia, Open Approach (ICD-10-PCS; 2022-04-27)
DX: E11.69 Type 2 diabetes mellitus with other specified complication (principal); M86.8X7 Other osteomyelitis, ankle and foot; E11.649 Type 2 diabetes mellitus with hypoglycemia without coma; E11.51 Type 2 diabetes mellitus with diabetic peripheral angiopathy without gangrene; L97.529 Non-pressure chronic ulcer of other part of left foot with unspecified severity; D53.9 Nutritional anemia, unspecified; E11.621 Type 2 diabetes mellitus with foot ulcer; Z20.822 Contact with and (suspected) exposure to COVID-19; E11.65 Type 2 diabetes mellitus with hyperglycemia; I10 Essential (primary) hypertension; R81 Glycosuria; R06.89 Other abnormalities of breathing; E78.5 Hyperlipidemia, unspecified; H40.9 Unspecified glaucoma; R80.9 Proteinuria, unspecified; F20.9 Schizophrenia, unspecified; F15.90 Other stimulant use, unspecified, uncomplicated; F10.20 Alcohol dependence, uncomplicated; Z79.899 Other long term (current) drug therapy; Z86.14 Personal history of Methicillin resistant Staphylococcus aureus infection; Z79.4 Long term (current) use of insulin
CPT/HCPCS: 36415; 36573; 36600; 71045; 80048; 80053; 80202; 80305; 80320; 81003; 82375; 82550; 82607; 82746; 82805; 82962; 83605; 83880; 84145; 84484; 85025; 87426; 93005; 99291; C1725; J1815; J2543; J3370; J3490; J7030; J7060; G0480

== ENCOUNTER 2022-05-17 00:51 | Inpatient (IN) | payer OTHER ==
[~2022-05-17] VITALS: Ht 170.2 cm; Wt 65.8 kg
[2022-05-17] MEDS ORDERED: KETOROLAC 30MG/ML VIAL IV STA (03:31)
[2022-05-17] MEDS ORDERED: ONDANSETRON HCL 4MG/2ML INJ IV STA (03:31)
[2022-05-17] MEDS ORDERED: SODIUM CHLORIDE 0.9% 1,000 ML IV ONE ×2 (03:45)
[2022-05-17 04:21] LABS: BASOPHILS % 0.5 % (0.0-2.0); HEMATOCRIT. 38.3 % (42.0-52.0); HEMOGLOBIN. 12.5 g/dL (14.0-18.0); LYMPHOCYTES % 22.2 % (20.0-50.0); MEAN CORPUSCULAR HEMOGLOBIN 32.8 pg (28.0-32.0); MEAN CORPUSCULAR VOLUME 100.6 fL (80.0-94.0); MONOCYTES % 7.6 % (2.0-8.0); NEUTROPHILS % 69.7 % (40.0-76.0); PLATELET 344 x1000/uL (130-400); RED BLOOD CELL COUNT 3.81 mill/uL (4.7-6.1)
[2022-05-17 04:31] LABS: CHLORIDE 96 mEq/L (98-107)
[2022-05-17 04:38] LABS: BETA HYDROXYBUTYRATE 4.5 mMol/L (0.0-0.3); ETHANOL BLOOD < 10 mg/dL
[2022-05-17] MEDS ORDERED: INSULIN REGULAR 100U/100ML PMX 100 ML IV STA ×2 (04:49→04:58)
[2022-05-17] MEDS ORDERED: INSULIN REGULAR (HUMULIN R) 300UNITS/3ML VIAL SUBCUT ONE (05:00)
[2022-05-17] MEDS ORDERED: IOHEXOL-300 100 ML BOTTLE ONE (05:53)
[2022-05-17 09:00] LABS: CLARITY URINE CLEAR (CLEAR); COLOR URINE YELLOW (YELLOW); KETONES URINE 1+ (NEGATIVE); LEUKOCYTE ESTERASE URINE NEGATIVE (NEGATIVE); NITRITE URINE NEGATIVE (NEGATIVE); OCCULT BLOOD URINE NEGATIVE (NEGATIVE); PROTEIN URINE NEGATIVE (NEGATIVE); SPECIFIC GRAVITY URINE 1.032 (1.005-1.030); UROBILINOGEN URINE 0.2 E.U./dL (0.2-1.0)
[2022-05-17 09:07] LABS: BG BASE EXCESS 0.8 mmol/L (-2.0-2.0); BG CARBOXYHEMOGLOBIN 0.6 % (0.5-1.5); BG DEOXYHEMOGLOBIN 4.1 % (0.0-5.0); BG HCO3 ACT 25.9 mmol/L (22.0-26.0); BG METHEMOGLOBIN 0.4 % (0.0-1.5); BG OXYGEN SATURATION 95.9 % (92.0-98.5); BG OXYHEMOGLOBIN 94.9 % (94.0-97.0); BG PCO2 42.9 mmHg (35.0-45.0); BG PH 7.398 (7.350-7.450); BG PO2 85.3 mmHg (75.0-100.0); BG SAMPLE SITE RIGHT RADIAL; BG TOTAL HEMOGLOBIN 12.3 g/dL (12.0-18.0); BG VENT MODE ROOM AIR
[2022-05-17] MEDS ORDERED: DEXTROSE 50% WATER 50ML SYRINGE IV PRN (09:15)
[2022-05-17 09:32] LABS: *AMPHETAMINES SCREEN URINE NEGATIVE (NEGATIVE); *BARBITURATES SCREEN URINE NEGATIVE (NEGATIVE); *BENZODIAZEPINES SCREEN URINE NEGATIVE (NEGATIVE); *COCAINE SCREEN URINE NEGATIVE (NEGATIVE); CANNABINOID URINE SCREEN NEGATIVE (NEGATIVE); METHADONE URINE SCREEN NEGATIVE (NEGATIVE); OPIATES URINE SCREEN NEGATIVE (NEGATIVE); PHENCYCLIDINE URINE SCREEN NEGATIVE (NEGATIVE)
[2022-05-17] MEDS ORDERED: PIPERACILLIN/TAZ 3.375G PREMIX 50 ML IV SCH ×2 (09:45→16:00)
[2022-05-17] MEDS: INSULIN GLARGINE 100 UNITS/ML SUBCUT SCH ×2 (10:00→21:15)
[2022-05-17] MEDS: DOCUSATE SODIUM 250MG CAPSULE PO SCH (11:21)
[2022-05-17] MEDS: BLOOD SUGAR DIAGNOSTIC STRIP TEST SCH ×3 (12:19→21:15)
[2022-05-17] MEDS: INSULIN LISPRO 100 UNITS/ML SUBCUT SCH ×4 (12:20→21:14)
[2022-05-17 12:30] VITALS: BP 96/66
[2022-05-17 13:50] VITALS: BP 99/63
[2022-05-17] MEDS: LACTULOSE 20G/30ML UDC PO SCH ×2 (14:00→20:51)
[2022-05-17 16:00] VITALS: BP 96/62
[2022-05-17] MEDS: PIPERACILLIN/TAZOBACTAM 3.375 G in DEXTROSE 5% WATER 50 ML IV SCH ×2 (16:02→21:16)
[2022-05-17 17:01] VITALS: BP 134/84
[2022-05-17 18:00] VITALS: BP 121/77
[2022-05-17 20:00] VITALS: BP 132/76
[2022-05-17] MEDS: KETOROLAC 15MG/ML VIAL IV PRN (20:54)
[2022-05-18] VITALS: BP 92/54
[2022-05-18 04:00] VITALS: BP 93/60
[2022-05-18] MEDS: LACTULOSE 20G/30ML UDC PO SCH ×4 (05:56→22:46)
[2022-05-18] MEDS: KETOROLAC 15MG/ML VIAL IV PRN ×3 (05:56→21:43)
[2022-05-18] MEDS: PIPERACILLIN/TAZOBACTAM 3.375 G in DEXTROSE 5% WATER 50 ML IV SCH ×3 (05:57→22:48)
[2022-05-18] MEDS ORDERED: PIPERACILLIN/TAZOBACTAM 3.375G in DEXT 5% WATER 50ML IV SCH (06:00)
[2022-05-18] MEDS: BLOOD SUGAR DIAGNOSTIC STRIP TEST SCH ×4 (06:54→21:00)
[2022-05-18 06:56] LABS: BASOPHILS % 0.6 % (0.0-2.0); EOSINOPHILS % 3.4 % (0.0-5.0); HEMOGLOBIN. 10.7 g/dL (14.0-18.0); MEAN CORPUSCULAR HEMOGLOBIN 33.5 pg (28.0-32.0); MEAN CORPUSCULAR VOLUME 97.2 fL (80.0-94.0); MEAN PLATELET VOLUME 7.8 fl (7.4-10.4); MONOCYTES % 6.8 % (2.0-8.0); NEUTROPHILS % 60.2 % (40.0-76.0); PLATELET 343 x1000/uL (130-400); RED BLOOD CELL COUNT 3.19 mill/uL (4.7-6.1); RED CELL DISTRIBUTION WIDTH 13.7 % (11.6-14.6)
[2022-05-18 07:30] LABS: CHLORIDE 108 mEq/L (98-107)
[2022-05-18 08:01] VITALS: BP 100/60
[2022-05-18] MEDS: INSULIN GLARGINE 100 UNITS/ML SUBCUT SCH ×2 (08:40→22:48)
[2022-05-18] MEDS: INSULIN LISPRO 100 UNITS/ML SUBCUT SCH ×4 (08:42→22:47)
[2022-05-18] MEDS: DOCUSATE SODIUM 250MG CAPSULE PO SCH (08:57)
[2022-05-18 12:00] VITALS: BP 96/54
[2022-05-18] MEDS ORDERED: GABAPENTIN 800 MG PO SCH (12:00)
[2022-05-18] MEDS: GABAPENTIN 400MG CAPSULE PO SCH ×2 (12:34→17:29)
[2022-05-18] MEDS ORDERED: *PATIENT'S OWN MEDICATION STORAGE XX SCH (12:45)
[2022-05-18] MEDS ORDERED: VANCOMYCIN 1500MG in DEXTROSE 5% WATER 250ML IV SCH (14:00)
[2022-05-18] MEDS: BIKTARVY PO SCH (14:07)
[2022-05-18 16:00] VITALS: BP 97/59
[2022-05-18 19:59] VITALS: BP 102/63
[2022-05-19] VITALS (8 sets, daily range): BP systolic 92–117; BP diastolic 54–77
[2022-05-19] MEDS: VANCOMYCIN 1.25GM PMX (XELLIA) 250 ML IV SCH ×3 (01:29→20:20)
[2022-05-19] MEDS: LACTULOSE 20G/30ML UDC PO SCH ×3 (05:09→22:00)
[2022-05-19] MEDS: PIPERACILLIN/TAZOBACTAM 3.375 G in DEXTROSE 5% WATER 50 ML IV SCH ×3 (06:06→22:32)
[2022-05-19] MEDS: INSULIN LISPRO 100 UNITS/ML SUBCUT SCH ×4 (06:33→20:30)
[2022-05-19] MEDS: BLOOD SUGAR DIAGNOSTIC STRIP TEST SCH ×4 (06:33→20:08)
[2022-05-19] MEDS: DOCUSATE SODIUM 250MG CAPSULE PO SCH (09:00)
[2022-05-19] MEDS: BIKTARVY PO SCH (09:23)
[2022-05-19] MEDS: GABAPENTIN 400MG CAPSULE PO SCH ×3 (09:23→17:10)
[2022-05-19] MEDS: INSULIN GLARGINE 100 UNITS/ML SUBCUT SCH ×2 (09:23→22:44)
[2022-05-19] MEDS: KETOROLAC 15MG/ML VIAL IV PRN ×2 (09:41→17:09)
[2022-05-20] VITALS (8 sets, daily range): BP systolic 105–135; BP diastolic 64–98
[2022-05-20] MEDS: ACETAMINOPHEN 325MG TABLET PO PRN ×2 (01:34→12:44)
[2022-05-20] MEDS: KETOROLAC 15MG/ML VIAL IV PRN ×2 (01:53→09:21)
[2022-05-20] MEDS: PIPERACILLIN/TAZOBACTAM 3.375 G in DEXTROSE 5% WATER 50 ML IV SCH ×2 (05:51→12:40)
[2022-05-20] MEDS: LACTULOSE 20G/30ML UDC PO SCH ×2 (06:00→12:40)
[2022-05-20] MEDS: BLOOD SUGAR DIAGNOSTIC STRIP TEST SCH ×3 (06:06→16:20)
[2022-05-20] MEDS: INSULIN LISPRO 100 UNITS/ML SUBCUT SCH ×3 (07:20→16:19)
[2022-05-20 08:11] LABS: CHLORIDE 105 mEq/L (98-107)
[2022-05-20] MEDS: BIKTARVY PO SCH (09:00)
[2022-05-20] MEDS: DOCUSATE SODIUM 250MG CAPSULE PO SCH (09:00)
[2022-05-20] MEDS: VANCOMYCIN 1.25GM PMX (XELLIA) 250 ML IV SCH (09:00)
[2022-05-20] MEDS: GABAPENTIN 400MG CAPSULE PO SCH ×3 (09:01→16:17)
[2022-05-20] MEDS: INSULIN GLARGINE 100 UNITS/ML SUBCUT SCH (09:02)
[2022-05-20] MEDS ORDERED: VANCOMYCIN 1G PREMIX 200 ML IV SCH (23:00)
== END 2022-05-20 21:36 | disposition home or self-care (01) | DRG 720 ==
LOC: ER 00:51 → MICUSO 04:51 → EDBEDREQ 04:53 → EDBEDREQTM 04:53 → EDBEDREQSVC 07:39 → 3WST 12:05
PROVIDERS: ADMIT Internal Medicine; ATTEND Internal Medicine
PROC: 0JBR0ZZ Excision of Left Foot Subcutaneous Tissue and Fascia, Open Approach (ICD-10-PCS; principal; 2022-05-20)
PROC: 05HY33Z Insertion of Infusion Device into Upper Vein, Percutaneous Approach (ICD-10-PCS; 2022-05-20)
DX: A41.9 Sepsis, unspecified organism (principal); E44.0 Moderate protein-calorie malnutrition; E11.51 Type 2 diabetes mellitus with diabetic peripheral angiopathy without gangrene; S91.302A Unspecified open wound, left foot, initial encounter; D64.9 Anemia, unspecified; F15.90 Other stimulant use, unspecified, uncomplicated; L03.317 Cellulitis of buttock; Z68.22 Body mass index [BMI] 22.0-22.9, adult; F20.9 Schizophrenia, unspecified; I10 Essential (primary) hypertension; Z20.822 Contact with and (suspected) exposure to COVID-19; Z79.4 Long term (current) use of insulin; Z86.14 Personal history of Methicillin resistant Staphylococcus aureus infection
CPT/HCPCS: 36415; 36600; 71045; 73630; 74177; 80048; 80053; 80202; 80305; 80320; 81003; 82010; 82375; 82805; 82962; 83605; 84145; 85025; 87426; 99291; C9803; J1815; J1885; J2405; J2543; J3370; J7030; J7060; Q9967; G0480

== ENCOUNTER 2022-06-01 15:42 | Emergency (ER) | payer MEDICAID, OTHER ==
[~2022-06-01] VITALS: Ht 177.8 cm; Wt 69.0 kg
[~2022-06-01 15:42] MED LIST changes: -ASPI-1160 PO; -BUPR1FIL SL; -DOCU250C14 PO; -FERR325T6 PO; -FURO40TA5 MT; -INSLIS SUBCUT; +INSU100I28 SQ; -LANTUSUD SUBCUT; -LIP40 PO; -METF-414 PO
[2022-06-01 18:08] VITALS: BP 126/84
[2022-06-01 20:27] LABS: CHLORIDE 105 mEq/L (98-107)
[2022-06-01 21:05] LABS: BASOPHILS % 0.4 % (0.0-2.0); EOSINOPHILS % 1.8 % (0.0-5.0); HEMOGLOBIN. 10.2 g/dL (14.0-18.0); LYMPHOCYTES % 19.2 % (20.0-50.0); MEAN CORPUSCULAR HEMOGLOBIN 31.6 pg (28.0-32.0); MEAN CORPUSCULAR VOLUME 96.1 fL (80.0-94.0); MEAN PLATELET VOLUME 6.5 fl (7.4-10.4); MONOCYTES % 6.4 % (2.0-8.0); NEUTROPHILS % 72.2 % (40.0-76.0); PLATELET 453 x1000/uL (130-400); RED BLOOD CELL COUNT 3.22 mill/uL (4.7-6.1); RED CELL DISTRIBUTION WIDTH 13.9 % (11.6-14.6)
[2022-06-01 21:11] LABS: PARTIAL THROMBOPLASTIN TIME 31.2 sec (23.4-31.0); PROTHROMBIN TIME 10.8 sec (9.6-11.0)
== END 2022-06-01 20:00 | disposition home or self-care (01) ==
LOC: ER 15:49
DX: T82.838A Hemorrhage due to vascular prosthetic devices, implants and grafts, initial encounter (principal); X58.XXXA Exposure to other specified factors, initial encounter; E11.9 Type 2 diabetes mellitus without complications; I10 Essential (primary) hypertension; H40.9 Unspecified glaucoma; Z79.899 Other long term (current) drug therapy
CPT/HCPCS: 36415; 80053; 85025; 86850; 86900; 99283

== ENCOUNTER 2022-07-29 00:27 | Emergency (ER) | payer MEDICAID, OTHER ==
[~2022-07-29] VITALS: Ht 172.7 cm; Wt 62.0 kg
[~2022-07-29 00:27] MED LIST changes: +AMOX1TAB16 MT; +AMOX1TAB16 PO; +METF-414 MT; +SULF-13 MT; +SULF-292 PO
[2022-07-29 07:13] LABS: BASOPHILS % 0.4 % (0.0-2.0); EOSINOPHILS % 3.4 % (0.0-5.0); HEMATOCRIT. 35.3 % (42.0-52.0); HEMOGLOBIN. 11.8 g/dL (14.0-18.0); LYMPHOCYTES % 35.8 % (20.0-50.0); MEAN CORPUSCULAR HEMOGLOBIN 31.6 pg (28.0-32.0); MEAN CORPUSCULAR VOLUME 94.8 fL (80.0-94.0); MEAN PLATELET VOLUME 6.3 fl (7.4-10.4); NEUTROPHILS % 53.4 % (40.0-76.0); PLATELET 480 x1000/uL (130-400); RED BLOOD CELL COUNT 3.72 mill/uL (4.7-6.1); RED CELL DISTRIBUTION WIDTH 14.9 % (11.6-14.6)
[2022-07-29 07:21] LABS: CHLORIDE 103 mEq/L (98-107)
[2022-07-29] MEDS ORDERED: IBUPROFEN 600MG TABLET PO ONE (08:00)
[2022-07-29] MEDS ORDERED: SODIUM POLYSTYRENE SULFONATE 15 G/60 ML BOT PO ONE (08:00)
[2022-07-29] MEDS ORDERED: IBUP-2029 MT (08:06)
[2022-07-29 09:40] VITALS: BP 102/67
== END 2022-07-29 09:57 | disposition home or self-care (01) ==
LOC: ER 00:34
DX: R19.7 Diarrhea, unspecified (principal); I10 Essential (primary) hypertension; E11.9 Type 2 diabetes mellitus without complications; Z79.899 Other long term (current) drug therapy
CPT/HCPCS: 36415; 80053; 83605; 85025; 87040; 99283; Z7610

== ENCOUNTER 2022-08-01 11:29 | Inpatient (IN) | payer MEDICAID ==
[~2022-08-01] VITALS: Ht 177.8 cm; Wt 61.7 kg
[~2022-08-01 11:29] MED LIST changes: +IBUP-2029 MT
[2022-08-01] MEDS ORDERED: SODIUM CHLORIDE 0.9% 1,000 ML IV ONE (12:15)
[2022-08-01 12:47] LABS: BASOPHILS % 0.7 % (0.0-2.0); EOSINOPHILS % 3.8 % (0.0-5.0); HEMATOCRIT. 37.5 % (42.0-52.0); HEMOGLOBIN. 12.6 g/dL (14.0-18.0); MEAN CORPUSCULAR HEMOGLOBIN 31.9 pg (28.0-32.0); MEAN CORPUSCULAR VOLUME 94.5 fL (80.0-94.0); MEAN PLATELET VOLUME 6.5 fl (7.4-10.4); MONOCYTES % 8.3 % (2.0-8.0); NEUTROPHILS % 44.2 % (40.0-76.0); PLATELET 390 x1000/uL (130-400); RED BLOOD CELL COUNT 3.97 mill/uL (4.7-6.1); RED CELL DISTRIBUTION WIDTH 14.8 % (11.6-14.6)
[2022-08-01 12:52] LABS: CHLORIDE 110 mEq/L (98-107)
[2022-08-01 12:55] LABS: INR 1.1; PROTHROMBIN TIME 11.5 sec (9.6-11.0)
[2022-08-01] MEDS: ALBUTEROL (0.083%) 2.5MG/3ML NEB HHN SCH ×3 (13:44→14:25)
[2022-08-01] MEDS ORDERED: SODIUM BICARBONATE 8.4% 1 MEQ/ML 50ML SYR IV NR (13:45)
[2022-08-01] MEDS ORDERED: CALCIUM GLUCONATE 1GM PREMIX 50 ML IV NR (13:45)
[2022-08-01] MEDS ORDERED: DEXTROSE 50% WATER 50ML SYRINGE IV NR (13:45)
[2022-08-01] MEDS ORDERED: INSULIN REGULAR (HUMULIN R) 300UNITS/3ML VIAL IV NR (13:45)
[2022-08-01] MEDS ORDERED: CLONIDINE 0.1MG TABLET PO PRN (16:00)
[2022-08-01] MEDS ORDERED: IPRATROPIUM/ALBUTEROL 0.5-3(2.5)MG/3ML NEB HHN PRN (16:00)
[2022-08-01] MEDS ORDERED: ONDANSETRON HCL 4MG/2ML INJ IV PRN (16:00)
[2022-08-01] MEDS ORDERED: ACETAMINOPHEN 325MG TABLET PO PRN (16:00)
[2022-08-01] MEDS ORDERED: DIPHENHYDRAMINE 50MG/ML VIAL IV PRN (16:00)
[2022-08-01 17:05] VITALS: BP_SYST 89; BP_SYST 99; BP_DIAS 54; BP_DIAS 60
[2022-08-01 17:30] VITALS: BP 99/60
[2022-08-01 20:00] VITALS: BP_SYST 203; BP_SYST 89; BP_DIAS 54; BP_DIAS 94
[2022-08-01] MEDS ORDERED: DEXTROSE 50% WATER 50ML SYRINGE IV PRN (20:15)
[2022-08-01] MEDS: INSULIN LISPRO 100 UNITS/ML SUBCUT SCH (21:00)
[2022-08-01] MEDS: BLOOD SUGAR DIAGNOSTIC STRIP TEST SCH (21:00)
[2022-08-01] MEDS ORDERED: SODIUM CHLORIDE 0.9% 1,000 ML IV SCH (23:30)
[2022-08-01] MEDS ORDERED: SODIUM CHLORIDE 0.9% 500 ML IV ONE ×2 (23:30→23:40)
[2022-08-01] MEDS ORDERED: SODIUM CHLORIDE 0.9% 500 ML IV NR (23:45)
[2022-08-02] VITALS: BP 99/63
[2022-08-02 01:01] LABS: CLARITY URINE CLEAR (CLEAR); COLOR URINE YELLOW (YELLOW); KETONES URINE TRACE (NEGATIVE); LEUKOCYTE ESTERASE URINE NEGATIVE (NEGATIVE); NITRITE URINE NEGATIVE (NEGATIVE); OCCULT BLOOD URINE NEGATIVE (NEGATIVE); PROTEIN URINE 1+ (NEGATIVE); UROBILINOGEN URINE 0.2 E.U./dL (0.2-1.0)
[2022-08-02 04:00] VITALS: BP 108/73
[2022-08-02] MEDS: INSULIN LISPRO 100 UNITS/ML SUBCUT SCH ×4 (06:10→22:12)
[2022-08-02] MEDS: BLOOD SUGAR DIAGNOSTIC STRIP TEST SCH ×4 (06:10→22:10)
[2022-08-02 08:00] VITALS: BP 109/72
[2022-08-02 08:36] LABS: BASOPHILS % 0.7 % (0.0-2.0); EOSINOPHILS % 3.3 % (0.0-5.0); HEMATOCRIT. 30.7 % (42.0-52.0); HEMOGLOBIN. 10.7 g/dL (14.0-18.0); LYMPHOCYTES % 27.1 % (20.0-50.0); MEAN CORPUSCULAR HEMOGLOBIN 32.2 pg (28.0-32.0); MEAN CORPUSCULAR VOLUME 92.8 fL (80.0-94.0); MEAN PLATELET VOLUME 6.8 fl (7.4-10.4); MONOCYTES % 6.6 % (2.0-8.0); NEUTROPHILS % 62.3 % (40.0-76.0); PLATELET 408 x1000/uL (130-400); RED BLOOD CELL COUNT 3.31 mill/uL (4.7-6.1); RED CELL DISTRIBUTION WIDTH 14.7 % (11.6-14.6)
[2022-08-02 08:54] LABS: CHLORIDE 108 mEq/L (98-107)
[2022-08-02] MEDS: BIKTARVY PO SCH (09:11)
[2022-08-02] MEDS ORDERED: CALCIUM GLUCONATE 100MG/ML 10ML VIAL IV STA (09:51)
[2022-08-02] MEDS ORDERED: DEXTROSE 50% WATER 50ML SYRINGE IV NR (10:00)
[2022-08-02] MEDS ORDERED: SODIUM BICARBONATE 8.4% 1 MEQ/ML 50ML SYR IV NR (10:00)
[2022-08-02] MEDS ORDERED: INSULIN REGULAR (HUMULIN R) 300UNITS/3ML VIAL IV NR (10:00)
[2022-08-02] MEDS ORDERED: CALCIUM GLUCONATE 1000 MG in DEXTROSE 5% WATER 100 ML IV NR (11:00)
[2022-08-02] MEDS ORDERED: CALCIUM GLUCONATE 1GM PREMIX 50 ML IV NR (11:00)
[2022-08-02] MEDS ORDERED: ALBUTEROL (0.083%) 2.5MG/3ML NEB HHN NR (11:00)
[2022-08-02] MEDS: SODIUM BICARBONATE 100 MEQ in DEXTROSE 5% WATER 1,000 ML IV SCH (11:41)
[2022-08-02 11:58] VITALS: BP 110/70
[2022-08-02 16:00] VITALS: BP 110/63
[2022-08-02 20:00] VITALS: BP 121/72
[2022-08-03] VITALS: BP 105/97
[2022-08-03] MEDS: SODIUM BICARBONATE 100 MEQ in DEXTROSE 5% WATER 1,000 ML IV SCH (03:09)
[2022-08-03 04:00] VITALS: BP 157/78
[2022-08-03] MEDS: BLOOD SUGAR DIAGNOSTIC STRIP TEST SCH ×4 (06:41→21:00)
[2022-08-03] MEDS: INSULIN LISPRO 100 UNITS/ML SUBCUT SCH ×4 (06:41→21:00)
[2022-08-03 07:18] LABS: BASOPHILS % 0.5 % (0.0-2.0); EOSINOPHILS % 2.5 % (0.0-5.0); HEMOGLOBIN. 11.1 g/dL (14.0-18.0); LYMPHOCYTES % 29.6 % (20.0-50.0); MEAN CORPUSCULAR HEMOGLOBIN 31.7 pg (28.0-32.0); MEAN CORPUSCULAR VOLUME 91.9 fL (80.0-94.0); MEAN PLATELET VOLUME 6.8 fl (7.4-10.4); MONOCYTES % 9.5 % (2.0-8.0); NEUTROPHILS % 57.9 % (40.0-76.0); PLATELET 364 x1000/uL (130-400); RED BLOOD CELL COUNT 3.49 mill/uL (4.7-6.1)
[2022-08-03 07:59] VITALS: BP 98/60
[2022-08-03 08:02] LABS: CHLORIDE 100 mEq/L (98-107)
[2022-08-03] MEDS: BIKTARVY PO SCH (08:44)
[2022-08-03] MEDS ORDERED: SODIUM POLYSTYRENE SULFONATE 15 G/60 ML BOT PO NR (09:15)
[2022-08-03] MEDS ORDERED: INSULIN GLARGINE 100 UNITS/ML SUBCUT SCH (09:23)
[2022-08-03 12:00] VITALS: BP 105/72
[2022-08-03 16:00] VITALS: BP 112/72
[2022-08-03 20:00] VITALS: BP 114/76
[2022-08-03] MEDS: HYDROCODONE/ACETAMINOPHEN 5/325MG TABLET PO PRN (22:05)
[2022-08-04] VITALS: BP 138/79
[2022-08-04 04:00] VITALS: BP 153/94
[2022-08-04] MEDS: HYDROCODONE/ACETAMINOPHEN 5/325MG TABLET PO PRN (04:43)
[2022-08-04 05:38] LABS: BASOPHILS % 0.7 % (0.0-2.0); EOSINOPHILS % 4.2 % (0.0-5.0); HEMATOCRIT. 30.5 % (42.0-52.0); HEMOGLOBIN. 10.6 g/dL (14.0-18.0); LYMPHOCYTES % 39.9 % (20.0-50.0); MEAN CORPUSCULAR HEMOGLOBIN 32.2 pg (28.0-32.0); MEAN CORPUSCULAR VOLUME 92.8 fL (80.0-94.0); MEAN PLATELET VOLUME 7.1 fl (7.4-10.4); MONOCYTES % 7.9 % (2.0-8.0); NEUTROPHILS % 47.3 % (40.0-76.0); PLATELET 336 x1000/uL (130-400); RED BLOOD CELL COUNT 3.28 mill/uL (4.7-6.1); RED CELL DISTRIBUTION WIDTH 15.1 % (11.6-14.6)
[2022-08-04 06:00] LABS: CHLORIDE 99 mEq/L (98-107)
[2022-08-04 06:13] LABS: PHOSPHORUS 3.2 mg/dL (2.5-4.9)
[2022-08-04] MEDS: BLOOD SUGAR DIAGNOSTIC STRIP TEST SCH ×2 (06:15→12:19)
[2022-08-04] MEDS: INSULIN LISPRO 100 UNITS/ML SUBCUT SCH ×2 (06:59→12:21)
[2022-08-04 08:00] VITALS: BP 113/70
[2022-08-04] MEDS ORDERED: MAGNESIUM 4 G PREMIX 100 ML IV NR (08:30)
[2022-08-04] MEDS: BIKTARVY PO SCH (09:16)
[2022-08-04] MEDS ORDERED: INSULIN GLARGINE 100 UNITS/ML SUBCUT SCH (10:00)
[2022-08-04] MEDS ORDERED: SODIUM CHLORIDE 0.9% 1000ML BAG (SEPSIS BOLUS) IV NR (10:30)
[2022-08-04 12:00] VITALS: BP 125/71
[2022-08-04 14:27] VITALS: BP 125/71
== END 2022-08-04 16:15 | disposition home health service (06) | DRG 249 ==
LOC: ER 11:29 → 7EST 14:20 → EDBEDREQ 14:25
PROVIDERS: ADMIT Internal Medicine; ATTEND Internal Medicine
DX: K52.1 Toxic gastroenteritis and colitis (principal); G06.1 Intraspinal abscess and granuloma; G82.50 Quadriplegia, unspecified; N17.9 Acute kidney failure, unspecified; E11.10 Type 2 diabetes mellitus with ketoacidosis without coma; M46.22 Osteomyelitis of vertebra, cervical region; I95.9 Hypotension, unspecified; J39.0 Retropharyngeal and parapharyngeal abscess; G95.9 Disease of spinal cord, unspecified; E11.22 Type 2 diabetes mellitus with diabetic chronic kidney disease; B95.62 Methicillin resistant Staphylococcus aureus infection as the cause of diseases classified elsewhere; E87.5 Hyperkalemia; T36.8X5A Adverse effect of other systemic antibiotics, initial encounter; E86.9 Volume depletion, unspecified; E11.69 Type 2 diabetes mellitus with other specified complication; I12.9 Hypertensive chronic kidney disease with stage 1 through stage 4 chronic kidney disease, or unspecified chronic kidney disease; N18.9 Chronic kidney disease, unspecified; F20.9 Schizophrenia, unspecified; E11.621 Type 2 diabetes mellitus with foot ulcer; E11.42 Type 2 diabetes mellitus with diabetic polyneuropathy; L97.529 Non-pressure chronic ulcer of other part of left foot with unspecified severity; M19.90 Unspecified osteoarthritis, unspecified site; M46.42 Discitis, unspecified, cervical region; H40.9 Unspecified glaucoma; Z86.61 Personal history of infections of the central nervous system; Z89.412 Acquired absence of left great toe
CPT/HCPCS: 36415; 71045; 76770; 80048; 80053; 81003; 82962; 83036; 83735; 84100; 84132; 84145; 84484; 85025; 87015; 87045; 87427; 87449; 87493; 93005; 93970; 94640; 99285; J0610; J1815; J3475; J3490; J7030; J7060; J7070